=== PATIENT | male | born 1950 | race American Indian/Alaskan Native ===

== ENCOUNTER 2017-05-27 03:01 | Emergency (ER) | payer MEDICARE ==
[2017-05-27 04:31] LABS: Basophils % (Auto) 0.7 % (0.0-1.8); Eosinophils % (Auto) 10.7 % (0.0-4.3); Hematocrit 38.2 % (35.5-45.6); Hemoglobin 12.4 gm/dl (11.8-15.2); Mean Corpuscular HGB Conc 33 % (32-34); Mean Corpuscular Hemoglobin 26 pg (28-32); Mean Corpuscular Volume 82 fl (84-94); Platelet Count 234 K/mm3 (140-440); Red Blood Count 4.69 M/mm3 (3.65-5.03); Red Cell Distribution Width 18.2 % (13.2-15.2); White Blood Count 9.5 K/mm3 (4.5-11.0)
[2017-05-27 04:41] LABS: Anion Gap 17 mmol/L; BUN/Creatinine Ratio 38; Blood Urea Nitrogen 19 mg/dL (9-20); Calcium 8.9 mg/dL (8.4-10.2); Carbon Dioxide 25 mmol/L (22-30); Chloride 101.2 mmol/L (98-107); Glucose 153 mg/dL (75-100); Potassium 4.6 mmol/L (3.6-5.0); Sodium 139 mmol/L (137-145)
[2017-05-27] MEDS ORDERED: DILAUDID IM ONE (05:17)
--- NOTE | 2017-05-27 05:47 | XRay Report ---
FINAL REPORT EXAM: XR CHEST 1V AP HISTORY: chest pain TECHNIQUE: A portable semi-erect view of the chest was obtained. Comparison is made study of 06/28/2015. FINDINGS: There is atelectatic changes in the right lung base. There elevation the right hemidiaphragm unchanged from the previous study. The heart size is normal. The lungs are not congested. There EKG leads overlying the chest wall. The bones and soft tissues reveal hardware in the mid cervical spine along with multilevel disc degeneration in the thoracic spine. IMPRESSION: Mild atelectatic changes in the right lung base. No evidence of pneumonia or congestion.
--- NOTE | 2017-05-27 06:35 | Emergency Department Report ---
HPI - General Chief Complaint: Chest Pain Time Seen by Provider: 05/27/17 05:19 - HPI HPI: The patient is a 67-year-old male with a history of chronic chest pain, who presents for evaluation of chest pain. The patient reports recurrence of left- sided chest pain for the past day, 5/10 in severity currently, throbbing in quality, constant since onset. The patient denies fever, cough, trauma to the chest, hemoptysis, dyspnea, syncope, for several vomiting, unilateral leg swelling, recent cancer. ED Past Medical Hx - Past Medical History Hx Hypertension: Yes Hx CVA: Yes Hx Heart Attack/AMI: Yes Hx Congestive Heart Failure: No Hx Diabetes: Yes Hx Pulmonary Embolism: No Hx Liver Disease: No Hx Renal Disease: Yes Hx Arthritis: No Hx Headaches / Migraines: No Hx Seizures: No Hx Asthma: No Hx COPD: No Hx Tuberculosis: No Hx Dementia: No Hx HIV: No Additional medical history: Tumor on neck, Osteomyelitis, quadriplegic - Surgical History Hx Open Heart Surgery: No Hx Cholecystectomy: No Hx Appendectomy: Yes Hx Breast Surgery: No Additional Surgical History: L leg amputation - Social History Smoking Status: Never Smoker Substance Use Type: None - Medications Home Medications: Home Medications Medication Instructions Recorded Confirmed Last Taken Type Acetaminophen [Pain Reliever] 500 mg PO QDAY #30 tablet 06/10/13 04/27/17 1 Day Ago Rx Citalopram [Celexa] 20 mg PO QDAY #30 tablet 06/10/13 04/27/17 1 Day Ago Rx Ferrous Sulfate [Feosol] 325 mg PO BID #60 tablet 06/10/13 04/27/17 1 Day Ago Rx Simvastatin 20 mg PO QHS #30 tablet 06/10/13 04/27/17 1 Day Ago Rx Sucralfate [Carafate] 1 gm PO Q6HR #30 oral.liqd 11/19/13 04/27/17 1 Day Ago Rx Ascorbic Acid [Vitamin C] 500 mg PO QDAY 03/27/14 04/27/17 1 Day Ago History Lactobacillus Acidophilus 1 each PO Q8HR 03/27/14 04/27/17 1 Day Ago History [Acidophilus] Lisinopril 5 mg PO DAILY 03/27/14 04/27/17 1 Day Ago History Mirtazapine [Remeron] 7.5 mg PO QHS 02/16/15 04/27/17 1 Day Ago History Warfarin [Coumadin] 5 mg PO QHS 06/28/15 04/27/17 1 Day Ago History Docusate Sodium [Colace CAP] 100 mg PO BID PRN #20 capsule 01/07/16 04/27/17 1 Day Ago Rx Esomeprazole Magnesium [NexIUM] 40 mg PO DAILY 03/20/16 04/27/17 1 Day Ago History Insulin Aspart Prot/Aspart(Nf) 0 units SUB-Q ACHS PRN 03/20/16 04/27/17 1 Day Ago History [NovoLOG Mix 70/30 VIAL] metFORMIN [Glucophage] 500 mg PO BID 03/20/16 04/27/17 1 Day Ago History Nitrofurantoin [place]/M-Cryst 100 mg PO Q12HR #30 capsule 04/13/16 04/27/17 1 Day Ago Rx [Macrobid CAP] traMADol [Ultram 50 MG tab] 50 mg PO Q6HR PRN #15 tablet 05/27/17 Unknown Rx ED Review of Systems ROS: Stated complaint: CP Other details as noted in HPI Constitutional: denies: fever ENT: denies: throat or neck pain Respiratory: denies: cough, shortness of breath Cardiovascular: reports chest pain Endocrine: denies unexplained weight loss or gain Gastrointestinal: denies: abdominal pain, nausea Genitourinary: denies: dysuria Musculoskeletal: denies: leg swelling Skin: denies: rash Neurological: denies: headache Hematological/Lymphatic: denies: easy bleeding or easy bruising Psych: denies sadness or hopelessness Physical Exam - Physical Exam Vital Signs: Vital Signs 05/27/17 05/27/17 05/27/17 03:05 03:14 03:16 Temperature 97.6 F Pulse Rate 104 H 70 94 H Respiratory 18 21 20 Rate Blood Pressure 139/83 Blood Pressure [Left] O2 Sat by Pulse 98 97 99 Oximetry 05/27/17 05/27/17 05/27/17 03:30 03:46 04:00 Temperature 97.8 F Pulse Rate 88 91 H 85 Respiratory 22 17 31 H Rate Blood Pressure 139/83 139/83 139/83 Blood Pressure 139/83 [Left] O2 Sat by Pulse 98 100 100 Oximetry 05/27/17 05/27/17 05/27/17 04:16 04:30 04:46 Temperature Pulse Rate 96 H 86 93 H Respiratory 30 H 23 11 L Rate Blood Pressure 139/83 139/83 139/83 Blood Pressure [Left] O2 Sat by Pulse 95 99 96 Oximetry 05/27/17 05/27/17 05/27/17 05:00 05:16 05:30 Temperature Pulse Rate 91 H 85 91 H Respiratory 17 12 20 Rate Blood Pressure 139/83 190/107 190/107 Blood Pressure [Left] O2 Sat by Pulse 97 100 99 Oximetry 05/27/17 05/27/17 05/27/17 05:46 06:00 06:01 Temperature 98.1 F Pulse Rate 88 86 85 Respiratory 12 14 16 Rate Blood Pressure 190/107 190/107 Blood Pressure 107/60 [Left] O2 Sat by Pulse 100 97 99 Oximetry Physical Exam: General: well-nourished, well-developed, no acute distress Head: Normocephalic, atraumatic Eyes: normal sclera ENT: Mucous membranes are pink and moist Neck: trachea midline, neck supple, No neck stiffness, no cervical adenopathy Respiratory: Breath sounds equal bilaterally, no wheezing, rales, or rhonchi Cardio: S1 and S2 present, no murmurs, rubs, gallops, capillary refill is brisk Abdomen: Normoactive bowel sounds, soft abdomen, no rigidity, no guarding or rebound tenderness Musc: Contracture of extremities present bilaterally, left AKA present Skin: No rash Neuro: no facial drooping, normal speech Psych: Normal affect ED Course Vital Signs 05/27/17 05/27/17 05/27/17 03:05 03:14 03:16 Temperature 97.6 F Pulse Rate 104 H 70 94 H Respiratory 18 21 20 Rate Blood Pressure 139/83 Blood Pressure [Left] O2 Sat by Pulse 98 97 99 Oximetry 05/27/17 05/27/17 05/27/17 03:30 03:46 04:00 Temperature 97.8 F Pulse Rate 88 91 H 85 Respiratory 22 17 31 H Rate Blood Pressure 139/83 139/83 139/83 Blood Pressure 139/83 [Left] O2 Sat by Pulse 98 100 100 Oximetry 05/27/17 05/27/17 05/27/17 04:16 04:30 04:46 Temperature Pulse Rate 96 H 86 93 H Respiratory 30 H 23 11 L Rate Blood Pressure 139/83 139/83 139/83 Blood Pressure [Left] O2 Sat by Pulse 95 99 96 Oximetry 05/27/17 05/27/17 05/27/17 05:00 05:16 05:30 Temperature Pulse Rate 91 H 85 91 H Respiratory 17 12 20 Rate Blood Pressure 139/83 190/107 190/107 Blood Pressure [Left] O2 Sat by Pulse 97 100 99 Oximetry 05/27/17 05/27/17 05/27/17 05:46 06:00 06:01 Temperature 98.1 F Pulse Rate 88 86 85 Respiratory 12 14 16 Rate Blood Pressure 190/107 190/107 Blood Pressure 107/60 [Left] O2 Sat by Pulse 100 97 99 Oximetry ED Medical Decision Making - Lab Data Result diagrams: 05/27/17 03:57 05/27/17 03:57 - Medical Decision Making The patient was seen and examined by myself. The patient is placed on a director of cardiac cath lab and continuous pulse ox. On initial evaluation, the patient was found to be in no distress. EKG was negative for findings suggestive of acute cardiac infarct. The patient given IM dose of Dilaudid for his pain. Labs and imaging are obtained. Chest x-ray is negative for pneumothorax, focal consolidation, pulmonary vascular congestion, pleural effusion, or other obvious acute cardiopulmonary disease process. Lab results were non-concerning including levels of troponin, WBC, hemoglobin, hematocrit, electrolytes, renal function. Medical records are reviewed and revealed that the patient receive evaluation by cardiology for the past one month for same atypical chest pain symptoms. The patient was reevaluated and reported that their symptoms were markedly improved. As the patient has a VINNY risk score less than 2, and a well 's score less than 2, the patient is at low risk of ACS or pulmonary emboli etiology of their symptoms. The patient is stable for discharge with outpatient follow-up. The patient is given follow-up and return instructions. The patient expressed understanding and agreed with the plan. The patient is discharged in stable condition. Critical care attestation.: If time is entered above; I have spent that time in minutes in the direct care of this critically ill patient, excluding procedure time. ED Disposition Clinical Impression: Acute chest pain Disposition: DC-01 TO HOME OR SELFCARE Is pt being admited?: No Does the pt Need Aspirin: No Condition: Stable Instructions: Chest Pain (ED) Prescriptions: traMADol [Ultram 50 MG tab] 50 mg PO Q6HR PRN #15 tablet PRN Reason: Pain Referrals: PRIMARY CARE, [Primary Care Provider] - 3-5 Days Time of Disposition: 06:31
[2017-05-27 08:19] VITALS: BP 160/84
== END 2017-05-27 08:22 | disposition home or self-care (01) ==
LOC: ED 03:01
DX: R07.9 Chest pain, unspecified (principal); I10 Essential (primary) hypertension; I25.2 Old myocardial infarction; E11.9 Type 2 diabetes mellitus without complications
CPT/HCPCS: 36415; 71010; 80048; 84484; 85025; 93005; 93010; 96372; 99285; J1170

== ENCOUNTER 2017-08-19 23:56 | Inpatient (IN) | payer MEDICARE ==
[2017-08-20] MEDS ORDERED: NACL 0.9% 1000 ML 1,000 ML IV ONE ×2 (01:11→02:51)
[2017-08-20] MEDS ORDERED: TYLENOL PO ONE (01:25)
[2017-08-20] MEDS ORDERED: TYLENOL ONE (01:27)
[2017-08-20 02:31] LABS: Alanine Aminotransferase 15 units/L (7-56); Albumin 3.2 g/dL (3.9-5); BUN/Creatinine Ratio 44; Blood Urea Nitrogen 22 mg/dL (9-20); Calcium 7.7 mg/dL (8.4-10.2); Hemolysis Index 0
[2017-08-20 02:54] LABS: Basophils % (Auto) 0.2 % (0.0-1.8); Hematocrit 32.9 % (35.5-45.6); Hemoglobin 10.7 gm/dl (11.8-15.2); Lymphocytes # (Auto) 2.4 K/mm3 (1.2-5.4); Lymphocytes % (Auto) 19.6 % (13.4-35.0); Mean Corpuscular HGB Conc 33 % (32-34); Mean Corpuscular Hemoglobin 27 pg (28-32); Mean Corpuscular Volume 84 fl (84-94); Monocytes # (Auto) 1.3 K/mm3 (0.0-0.8); Monocytes % (Auto) 11.1 % (0.0-7.3); Platelet Count 200 K/mm3 (140-440); Red Blood Count 3.92 M/mm3 (3.65-5.03); Red Cell Distribution Width 14.6 % (13.2-15.2)
[2017-08-20] MEDS ORDERED: KCL 10MEQ/100ML 10 MEQ/100 ML BAG IV SCH (03:00)
[2017-08-20 03:03] LABS: INR 1.63 (0.87-1.13)
[2017-08-20] MEDS ORDERED: NACL ONE (03:40)
[2017-08-20 03:55] LABS: Partial Thromboplastin Time 63.4 Sec. (24.2-36.6)
--- NOTE | 2017-08-20 04:37 | XRay Report ---
FINAL REPORT EXAM: XR CHEST 1V AP HISTORY: Fever. TECHNIQUE: A single frontal portable radiograph of the chest was obtained. Comparison is made with prior study 05/27/2017. FINDINGS: The cardiac silhouette and mediastinum are within normal limits. Again demonstrated is elevation of the right hemidiaphragm. There are moderate streaky densities at the right lung base, stable in appearance, likely scarring and/or atelectasis. The remainder of the lung cervantes are clear. There is no pleural effusion or pneumothorax. Moderate spondylotic changes are seen in the spine. There is partial visualization of bilateral spinal fixation rods and pedicle screws in the lower cervical spine. IMPRESSION: Streaky densities at the right lung base, likely scarring and/or atelectasis, stable compared to 05/27/2017. No new infiltrates seen.
[2017-08-20] MEDS ORDERED: MAGNESIUM SULFATE 2GM/50ML 2 GM/50 ML BAG IV ONE ×2 (04:53→07:59)
[2017-08-20] MEDS: KCL 10 MEQ in NACL 0.9% 100 ML IV SCH ×4 (05:15→09:59)
--- NOTE | 2017-08-20 05:28 | Cat Scan Report ---
FINAL REPORT EXAM: CT ABDOMEN PELVIS W CON HISTORY: abdominal pain, abdominal distention , quadriplegic intermediate patient, reported white count is 12.2 and lactate is 1 TECHNIQUE: CT images are acquired through the Abdomen and Pelvis in arterial and delayed phases following intravenous administration of contrast. Transaxial, coronal and sagittal reformations are provided. PRIORS: 01/06/2016 FINDINGS: Partially visualized intrathoracic contents are remarkable for predominantly linear bibasilar atelectasis/scarring. A subcentimeter focus of ill-defined arterial enhancement in the right hepatic dome on axial series 5, image 23 is noted. This finding is not imaged on delayed phase imaging and may be hypoattenuating on prior noncontrast exam and is too small to fully characterize but most likely represents a hemangioma or other benign entity. The liver, gallbladder, pancreas, spleen, and adrenal glands are otherwise unremarkable. Mild cortical irregularity/scarring is greater in the left versus right kidney. Kidneys show no worrisome lesions, hydronephrosis, or calculi. Urinary bladder is decompressed with a suprapubic catheter. There is air and fluid distension of the distal sigmoid colon and rectum to a greater degree than the more proximal portions of the colon. Multiple fluid levels are present throughout the colon. No megacolon. Mild distal colorectal wall thickening is similar to prior exam. No pericolonic stranding or edema. No free air, free fluid, or lymphadenopathy identified. Aorta is normal in course and caliber. An infrarenal IVC filter is present. Large right hip joint effusion with debris, joint dislocation/disorganization and extensive intra-articular and periarticular calcification appears unchanged from prior. No acute superficial soft tissue or skeletal finding. IMPRESSION: Air and fluid distension of the distal sigmoid colon and rectum greater than more proximal portions of the colon may be infectious, inflammatory or ischemic in etiology. No pneumoperitoneum or pericolonic findings of abscess or fadi colitis. 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 Dr. Vides discussed findings with Nurse Jack Hoskins at 0410 central Time on 08/20/2017 immediately following the examination.
--- NOTE | 2017-08-20 05:56 | Emergency Department Report ---
ED Abdominal Pain HPI - General Chief Complaint: Abdominal Pain Stated Complaint: FEVER Time Seen by Provider: 08/20/17 01:38 Source: patient Mode of arrival: Ambulatory Limitations: No Limitations - History of Present Illness Initial Comments: 67-year-old male with a past medical history of diabetes, [place], hypertension, renal sufficiency, quadriplegia, left leg AKA, and previous appendectomy presents to the Hospital complains of abdominal distention from [facility]. Patient denies pain. Patient presents with fever and hypotension. He is alert and oriented to self only. Positive suprapubic catheter. Severity scale (0 -10): 0 - Related Data Home Medications Medication Instructions Recorded Confirmed Last Taken Ascorbic Acid [Vitamin C] 500 mg PO QDAY 03/27/14 04/27/17 1 Day Ago ~04/26/17 Lactobacillus Acidophilus 1 each PO Q8HR 03/27/14 04/27/17 1 Day Ago [Acidophilus] ~04/26/17 Lisinopril 5 mg PO DAILY 03/27/14 04/27/17 1 Day Ago ~04/26/17 Mirtazapine [Remeron] 7.5 mg PO QHS 02/16/15 04/27/17 1 Day Ago ~04/26/17 Warfarin [Coumadin] 5 mg PO QHS 06/28/15 04/27/17 1 Day Ago ~04/26/17 Esomeprazole Magnesium [NexIUM] 40 mg PO DAILY 03/20/16 04/27/17 1 Day Ago ~04/26/17 Insulin Aspart Prot/Aspart(Nf) 0 units SUB-Q ACHS PRN 03/20/16 04/27/17 1 Day Ago [NovoLOG Mix 70/30 VIAL] ~04/26/17 metFORMIN [Glucophage] 500 mg PO BID 03/20/16 04/27/17 1 Day Ago ~04/26/17 Previous Rx's Medication Instructions Recorded Last Taken Type Acetaminophen [Pain Reliever] 500 mg PO QDAY #30 tablet 06/10/13 1 Day Ago Rx ~04/26/17 Citalopram [Celexa] 20 mg PO QDAY #30 tablet 06/10/13 1 Day Ago Rx ~04/26/17 Ferrous Sulfate [Feosol] 325 mg PO BID #60 tablet 06/10/13 1 Day Ago Rx ~04/26/17 Simvastatin 20 mg PO QHS #30 tablet 06/10/13 1 Day Ago Rx ~04/26/17 Sucralfate [Carafate] 1 gm PO Q6HR #30 oral.liqd 11/19/13 1 Day Ago Rx ~04/26/17 Docusate Sodium [Colace CAP] 100 mg PO BID PRN #20 capsule 01/07/16 1 Day Ago Rx ~04/26/17 Nitrofurantoin [place]/M-Cryst 100 mg PO Q12HR #30 capsule 04/13/16 1 Day Ago Rx [Macrobid CAP] ~04/26/17 traMADol [Ultram 50 MG tab] 50 mg PO Q6HR PRN #15 tablet 05/27/17 Unknown Rx Allergies Allergy/AdvReac Type Severity Reaction Status Date / Time No Known Allergies Allergy Verified 05/27/17 03:08 ED Review of Systems ROS: Stated complaint: FEVER Other details as noted in HPI Comment: All other systems reviewed and negative Other: Constitutional: Fever upon arrival Respiratory: Denies cough Cardiovascular: Denies chest pain GI: Denies abdominal pain : Superpubic Musculoskeletal: Denies back pain, joint swelling Skin: Denies rash Neurologic: Denies headache ED Past Medical Hx - Past Medical History Previous Medical History?: Yes Hx Hypertension: Yes Hx CVA: Yes Hx Heart Attack/AMI: Yes Hx Congestive Heart Failure: No Hx Diabetes: Yes Hx Pulmonary Embolism: No Hx Liver Disease: No Hx Renal Disease: Yes Hx Arthritis: No Hx Headaches / Migraines: No Hx Seizures: No Hx Asthma: No Hx COPD: No Hx Tuberculosis: No Hx Dementia: No Hx HIV: No Additional medical history: Tumor on neck, Osteomyelitis, quadriplegic - Surgical History Past Surgical History?: Yes Hx Open Heart Surgery: No Hx Cholecystectomy: No Hx Appendectomy: Yes Hx Breast Surgery: No Additional Surgical History: L leg amputation - Social History Smoking Status: Never Smoker Substance Use Type: None - Medications Home Medications: Home Medications Medication Instructions Recorded Confirmed Last Taken Type Acetaminophen [Pain Reliever] 500 mg PO QDAY #30 tablet 06/10/13 04/27/17 1 Day Ago Rx ~04/26/17 Citalopram [Celexa] 20 mg PO QDAY #30 tablet 06/10/13 04/27/17 1 Day Ago Rx ~04/26/17 Ferrous Sulfate [Feosol] 325 mg PO BID #60 tablet 06/10/13 04/27/17 1 Day Ago Rx ~04/26/17 Simvastatin 20 mg PO QHS #30 tablet 06/10/13 04/27/17 1 Day Ago Rx ~04/26/17 Sucralfate [Carafate] 1 gm PO Q6HR #30 oral.liqd 11/19/13 04/27/17 1 Day Ago Rx ~04/26/17 Ascorbic Acid [Vitamin C] 500 mg PO QDAY 03/27/14 04/27/17 1 Day Ago History ~04/26/17 Lactobacillus Acidophilus 1 each PO Q8HR 03/27/14 04/27/17 1 Day Ago History [Acidophilus] ~04/26/17 Lisinopril 5 mg PO DAILY 03/27/14 04/27/17 1 Day Ago History ~04/26/17 Mirtazapine [Remeron] 7.5 mg PO QHS 02/16/15 04/27/17 1 Day Ago History ~04/26/17 Warfarin [Coumadin] 5 mg PO QHS 06/28/15 04/27/17 1 Day Ago History ~04/26/17 Docusate Sodium [Colace CAP] 100 mg PO BID PRN #20 capsule 01/07/16 04/27/17 1 Day Ago Rx ~04/26/17 Esomeprazole Magnesium [NexIUM] 40 mg PO DAILY 03/20/16 04/27/17 1 Day Ago History ~04/26/17 Insulin Aspart Prot/Aspart(Nf) 0 units SUB-Q ACHS PRN 03/20/16 04/27/17 1 Day Ago History [NovoLOG Mix 70/30 VIAL] ~04/26/17 metFORMIN [Glucophage] 500 mg PO BID 03/20/16 04/27/17 1 Day Ago History ~04/26/17 Nitrofurantoin [place]/M-Cryst 100 mg PO Q12HR #30 capsule 04/13/16 04/27/17 1 Day Ago Rx [Macrobid CAP] ~04/26/17 traMADol [Ultram 50 MG tab] 50 mg PO Q6HR PRN #15 tablet 05/27/17 Unknown Rx ED Physical Exam - General Limitations: No Limitations - Other Other exam information: General: No limitations, patient is alert in no acute distress Head exam: Atraumatic, normocephalic Eyes exam: Normal appearance ENT: Moist mucous membrane, normal oropharynx Neck exam: Normal inspection, full range of motion Respiratory exam: Clear to auscultation bilateral Cardiovascular: Regular rate and rhythm Abdomen: Soft, distended, nontender Extremity: Full range of motion normal inspection no deformity Back: Normal Inspection, full range of motion, no tenderness Neurologic: Alert, oriented x1 Psychiatric: normal affect, normal mood ED Course Vital Signs 08/20/17 08/20/17 08/20/17 00:19 00:30 00:40 Temperature 100 F H Pulse Rate 81 79 Respiratory 22 22 16 Rate Blood Pressure 88/47 88/67 O2 Sat by Pulse 94 96 Oximetry 08/20/17 08/20/17 08/20/17 01:01 01:30 02:01 Temperature Pulse Rate 81 83 89 Respiratory 22 19 16 Rate Blood Pressure 88/47 88/46 124/82 O2 Sat by Pulse 93 95 96 Oximetry 08/20/17 02:30 Temperature Pulse Rate 80 Respiratory 16 Rate Blood Pressure 112/61 O2 Sat by Pulse 96 Oximetry ED Medical Decision Making - Lab Data Result diagrams: 08/20/17 01:27 08/20/17 01:27 Lab Results 08/20/17 08/20/17 08/20/17 Range/Units 01:27 01:27 01:33 WBC 12.2 H (4.5-11.0) K/mm3 RBC 3.92 (3.65-5.03) M/mm3 Hgb 10.7 L (11.8-15.2) gm/dl Hct 32.9 L (35.5-45.6) % MCV 84 (84-94) fl MCH 27 L (28-32) pg MCHC 33 (32-34) % RDW 14.6 (13.2-15.2) % Plt Count 200 (140-440) K/mm3 Lymph % (Auto) 19.6 (13.4-35.0) % [place] % (Auto) 11.1 H (0.0-7.3) % Eos % (Auto) 0.0 (0.0-4.3) % Baso % (Auto) 0.2 (0.0-1.8) % Lymph # 2.4 (1.2-5.4) K/mm3 [place] # 1.3 H (0.0-0.8) K/mm3 Eos # 0.0 (0.0-0.4) K/mm3 Baso # 0.0 (0.0-0.1) K/mm3 Seg Neutrophils % 69.1 (40.0-70.0) % Seg Neutrophils # 8.4 H (1.8-7.7) K/mm3 PT (12.2-14.9) Sec. INR (0.87-1.13) APTT (24.2-36.6) Sec. VBG pH (7.320-7.420) Sodium 138 (137-145) mmol/L Potassium 2.7 L* (3.6-5.0) mmol/L Chloride 96.5 L (98-107) mmol/L Carbon Dioxide 27 (22-30) mmol/L Anion Gap 17 mmol/L BUN 22 H (9-20) mg/dL Creatinine 0.5 L (0.8-1.5) mg/dL Estimated GFR > 60 ml/min BUN/Creatinine Ratio 44 % Glucose 104 H (75-100) mg/dL Lactic Acid (0.7-2.0) mmol/L Calcium 7.7 L (8.4-10.2) mg/dL Magnesium (1.7-2.3) mg/dL Total Bilirubin 0.40 (0.1-1.2) mg/dL AST 15 (5-40) units/L ALT 15 (7-56) units/L Alkaline Phosphatase 90 (35-129) units/L Total Protein 5.7 L (6.3-8.2) g/dL Albumin 3.2 L (3.9-5) g/dL Albumin/Globulin Ratio 1.3 % Lipase 13 (13-60) units/L Blood Type Antibody Screen 08/20/17 08/20/17 08/20/17 Range/Units 01:33 01:33 01:45 WBC (4.5-11.0) K/mm3 RBC (3.65-5.03) M/mm3 Hgb (11.8-15.2) gm/dl Hct (35.5-45.6) % MCV (84-94) fl MCH (28-32) pg MCHC (32-34) % RDW (13.2-15.2) % Plt Count (140-440) K/mm3 Lymph % (Auto) (13.4-35.0) % [place] % (Auto) (0.0-7.3) % Eos % (Auto) (0.0-4.3) % Baso % (Auto) (0.0-1.8) % Lymph # (1.2-5.4) K/mm3 [place] # (0.0-0.8) K/mm3 Eos # (0.0-0.4) K/mm3 Baso # (0.0-0.1) K/mm3 Seg Neutrophils % (40.0-70.0) % Seg Neutrophils # (1.8-7.7) K/mm3 PT 20.3 H (12.2-14.9) Sec. INR 1.63 H (0.87-1.13) APTT 63.4 H* (24.2-36.6) Sec. VBG pH (7.320-7.420) Sodium (137-145) mmol/L Potassium (3.6-5.0) mmol/L Chloride (98-107) mmol/L Carbon Dioxide (22-30) mmol/L Anion Gap mmol/L BUN (9-20) mg/dL Creatinine (0.8-1.5) mg/dL Estimated GFR ml/min BUN/Creatinine Ratio % Glucose (75-100) mg/dL Lactic Acid 1.00 (0.7-2.0) mmol/L Calcium (8.4-10.2) mg/dL Magnesium (1.7-2.3) mg/dL Total Bilirubin (0.1-1.2) mg/dL AST (5-40) units/L ALT (7-56) units/L Alkaline Phosphatase (35-129) units/L Total Protein (6.3-8.2) g/dL Albumin (3.9-5) g/dL Albumin/Globulin Ratio % Lipase (13-60) units/L Blood Type O POSITIVE Antibody Screen Negative 08/20/17 08/20/17 Range/Units 02:30 02:54 WBC (4.5-11.0) K/mm3 RBC (3.65-5.03) M/mm3 Hgb (11.8-15.2) gm/dl Hct (35.5-45.6) % MCV (84-94) fl MCH (28-32) pg MCHC (32-34) % RDW (13.2-15.2) % Plt Count (140-440) K/mm3 Lymph % (Auto) (13.4-35.0) % [place] % (Auto) (0.0-7.3) % Eos % (Auto) (0.0-4.3) % Baso % (Auto) (0.0-1.8) % Lymph # (1.2-5.4) K/mm3 [place] # (0.0-0.8) K/mm3 Eos # (0.0-0.4) K/mm3 Baso # (0.0-0.1) K/mm3 Seg Neutrophils % (40.0-70.0) % Seg Neutrophils # (1.8-7.7) K/mm3 PT (12.2-14.9) Sec. INR (0.87-1.13) APTT (24.2-36.6) Sec. VBG pH 7.421 H (7.320-7.420) Sodium (137-145) mmol/L Potassium (3.6-5.0) mmol/L Chloride (98-107) mmol/L Carbon Dioxide (22-30) mmol/L Anion Gap mmol/L BUN (9-20) mg/dL Creatinine (0.8-1.5) mg/dL Estimated GFR ml/min BUN/Creatinine Ratio % Glucose (75-100) mg/dL Lactic Acid (0.7-2.0) mmol/L Calcium (8.4-10.2) mg/dL Magnesium 1.60 L (1.7-2.3) mg/dL Total Bilirubin (0.1-1.2) mg/dL AST (5-40) units/L ALT (7-56) units/L Alkaline Phosphatase (35-129) units/L Total Protein (6.3-8.2) g/dL Albumin (3.9-5) g/dL Albumin/Globulin Ratio % Lipase (13-60) units/L Blood Type Antibody Screen - Radiology Data Radiology results: report reviewed CT abdomen and pelvis IV contrast: Air and fluid distention of the distal sigmoid colon and rectum greater then more proximal portions of the colon may be infectious, inflammatory or ischemic etiology. See report for other incidental finding - Medical Decision Making Abdominal distention. CT results discussed with surgery. They will consult. Patient currently Zosyn. Hypotension improved with normal saline. IV potassium and IV magnesium ordered for supplementation of electrolytes. UA collection still pending at disposition. Hospitalist informed - Differential Diagnosis obstruction, fecal impaction, perforation, UTI, sepsis Critical Care Time: No Critical care attestation.: If time is entered above; I have spent that time in minutes in the direct care of this critically ill patient, excluding procedure time. ED Disposition Clinical Impression: Abdominal distension, Colon distention, Diabetes mellitus, type 2, Hypomagnesemia, Hypokalemia, Quadriparesis, Fever Disposition: -09 OP ADMIT IP TO THIS HOSP Is pt being admited?: Yes Condition: Stable Time of Disposition: 06:02 (Dr Tate/hosp)
[2017-08-20] MEDS ORDERED: ZOSYN/NS 4.5GM/100ML 4.5 GM/100 ML VIAL IV ONE (06:00)
[2017-08-20 07:12] LABS: Bacteria,Urine 2+ /HPF (Negative); Bilirubin,Urine NEG (Negative); Blood,Urine MOD (Negative); Color,Urine Yellow (Yellow); Mucus,Urine FEW /HPF; Nitrite,Urine POS (Negative); Urobilinogen,Urine < 2.0 mg/dL (<2.0)
--- NOTE | 2017-08-20 08:34 | Consultation ---
History of Present Illness Consult date: 08/20/17 Reason for consult: other (abdominal distention) Requesting physician: CLEMENCIA CORTÉS Chief complaint: abdominal distention - History of present illness History of present illness: 67yo M with multiple medical problems including quadriplegia presents with acute onset of abdominal distention. Denies pain. Denies this as a chronic problem. No N/V. Does not require assistance to have BM. No meds are normally used to cause BM. Only reports feeling of urinary frequency and lump in throat. No cough/cold sx's. No chest pain. Past History Past Medical History: acute NV, diabetes, DVT, other (renal insufficiency, history of DVT, quadriplegia, ) Past Surgical History: appendectomy, Other (leg amputation, suprapubic catheter placement) Social history: other (lives in long term). denies: smoking, alcohol abuse, IV drug use Family history: no significant family history Medications and Allergies Allergies Allergy/AdvReac Type Severity Reaction Status Date / Time No Known Allergies Allergy Verified 05/27/17 03:08 Home Medications Medication Instructions Recorded Confirmed Last Taken Type Acetaminophen [Pain Reliever] 500 mg PO QDAY #30 tablet 06/10/13 08/20/17 1 Day Ago Rx ~04/26/17 Citalopram [Celexa] 20 mg PO QDAY #30 tablet 06/10/13 08/20/17 1 Day Ago Rx ~04/26/17 Ferrous Sulfate [Feosol] 325 mg PO BID #60 tablet 06/10/13 08/20/17 1 Day Ago Rx ~04/26/17 Simvastatin 20 mg PO QHS #30 tablet 06/10/13 08/20/17 1 Day Ago Rx ~04/26/17 Sucralfate [Carafate] 1 gm PO Q6HR #30 oral.liqd 11/19/13 08/20/17 1 Day Ago Rx ~04/26/17 Ascorbic Acid [Vitamin C] 500 mg PO QDAY 03/27/14 08/20/17 1 Day Ago History ~04/26/17 Lactobacillus Acidophilus 1 each PO Q8HR 03/27/14 08/20/17 1 Day Ago History [Acidophilus] ~04/26/17 Lisinopril 5 mg PO DAILY 09/15/14 02/08/18 1 Day Ago History ~04/26/17 Mirtazapine [Remeron] 7.5 mg PO QHS 02/16/15 08/20/17 1 Day Ago History ~04/26/17 Warfarin [Coumadin] 5 mg PO QHS 06/28/15 08/20/17 1 Day Ago History ~04/26/17 Docusate Sodium [Colace CAP] 100 mg PO BID PRN #20 capsule 01/07/16 08/20/17 1 Day Ago Rx ~04/26/17 Esomeprazole Magnesium [NexIUM] 40 mg PO DAILY 03/20/16 08/20/17 1 Day Ago History ~04/26/17 Insulin Aspart Prot/Aspart(Nf) 0 units SUB-Q ACHS PRN 03/20/16 08/20/17 1 Day Ago History [NovoLOG Mix 70/30 VIAL] ~04/26/17 metFORMIN [Glucophage] 500 mg PO BID 03/20/16 08/20/17 1 Day Ago History ~04/26/17 Nitrofurantoin [place]/M-Cryst 100 mg PO Q12HR #30 capsule 04/13/16 08/20/17 1 Day Ago Rx [Macrobid CAP] ~04/26/17 traMADol [Ultram 50 MG tab] 50 mg PO Q6HR PRN #15 tablet 05/27/17 08/20/17 Unknown Rx Review of Systems - Constitutional no fever, no chills, no sweats, no night sweats - EENT Ears, nose, mouth and throat: swelling in throat - Cardiovascular no chest pain - Respiratory no cough, no cough with sputum, no shortness of breath - Gastrointestinal dyspepsia/bloating, no abdominal pain, no nausea, no vomiting, no hematemesis, no BRBPR, no melena, no hematochezia, no heartburn, no indigestion - Genitourinary urinary frequency Exam Vital Signs Resp 08/20/17 00:19 - General physical appearance Positive: no distress, no pain, other (awake and alert. Seemed to answer questions appropriately.) - Eyes Positive: normal occular movement. Negative: icteric - ENT Positive: other (very dry oral mucosa) - Respiratory Positive: normal expansion, normal respiratory effort, clear to auscultation - Cardiovascular Rhythm: regular - Abdomen Abdomen: Present: soft, bowel sounds hypoactive (with fluid filled sounds.), distended. Absent: tender, rebound, guarding, rigid - Integumentary no rash - Psychiatric Psychiatric: appropriate mood/affect, cooperative Results - Labs 08/20/17 01:27 08/20/17 01:27 Abnormal lab results 08/20/17 08/20/17 08/20/17 Range/Units 01:27 01:27 01:33 WBC 12.2 H (4.5-11.0) K/mm3 Hgb 10.7 L (11.8-15.2) gm/dl Hct 32.9 L (35.5-45.6) % MCH 27 L (28-32) pg [place] % (Auto) 11.1 H (0.0-7.3) % [place] # 1.3 H (0.0-0.8) K/mm3 Seg Neutrophils # 8.4 H (1.8-7.7) K/mm3 PT 20.3 H (12.2-14.9) Sec. INR 1.63 H (0.87-1.13) APTT 63.4 H* (24.2-36.6) Sec. VBG pH (7.320-7.420) Potassium 2.7 L* (3.6-5.0) mmol/L Chloride 96.5 L (98-107) mmol/L BUN 22 H (9-20) mg/dL Creatinine 0.5 L (0.8-1.5) mg/dL Glucose 104 H (75-100) mg/dL Calcium 7.7 L (8.4-10.2) mg/dL Magnesium (1.7-2.3) mg/dL Total Protein 5.7 L (6.3-8.2) g/dL Albumin 3.2 L (3.9-5) g/dL Ur Specific [place] (1.003-1.030) Urine WBC (Auto) (0.0-6.0) /HPF 08/20/17 08/20/17 08/20/17 Range/Units 02:30 02:54 05:10 WBC (4.5-11.0) K/mm3 Hgb (11.8-15.2) gm/dl Hct (35.5-45.6) % MCH (28-32) pg [place] % (Auto) (0.0-7.3) % [place] # (0.0-0.8) K/mm3 Seg Neutrophils # (1.8-7.7) K/mm3 PT (12.2-14.9) Sec. INR (0.87-1.13) APTT (24.2-36.6) Sec. VBG pH 7.421 H (7.320-7.420) Potassium (3.6-5.0) mmol/L Chloride (98-107) mmol/L BUN (9-20) mg/dL Creatinine (0.8-1.5) mg/dL Glucose (75-100) mg/dL Calcium (8.4-10.2) mg/dL Magnesium 1.60 L (1.7-2.3) mg/dL Total Protein (6.3-8.2) g/dL Albumin (3.9-5) g/dL Ur Specific [place] 1.058 H (1.003-1.030) Urine WBC (Auto) 164.0 H (0.0-6.0) /HPF Diabetes panel 08/20/17 Range/Units 01:27 Sodium 138 (137-145) mmol/L Potassium 2.7 L* (3.6-5.0) mmol/L Chloride 96.5 L (98-107) mmol/L Carbon Dioxide 27 (22-30) mmol/L BUN 22 H (9-20) mg/dL Creatinine 0.5 L (0.8-1.5) mg/dL Glucose 104 H (75-100) mg/dL Calcium 7.7 L (8.4-10.2) mg/dL AST 15 (5-40) units/L ALT 15 (7-56) units/L Alkaline Phosphatase 90 (35-129) units/L Total Protein 5.7 L (6.3-8.2) g/dL Albumin 3.2 L (3.9-5) g/dL Calcium panel 08/20/17 Range/Units 01:27 Calcium 7.7 L (8.4-10.2) mg/dL Albumin 3.2 L (3.9-5) g/dL Pituitary panel 08/20/17 Range/Units 01:27 Sodium 138 (137-145) mmol/L Potassium 2.7 L* (3.6-5.0) mmol/L Chloride 96.5 L (98-107) mmol/L Carbon Dioxide 27 (22-30) mmol/L BUN 22 H (9-20) mg/dL Creatinine 0.5 L (0.8-1.5) mg/dL Glucose 104 H (75-100) mg/dL Calcium 7.7 L (8.4-10.2) mg/dL Adrenal panel 08/20/17 Range/Units 01:27 Sodium 138 (137-145) mmol/L Potassium 2.7 L* (3.6-5.0) mmol/L Chloride 96.5 L (98-107) mmol/L Carbon Dioxide 27 (22-30) mmol/L BUN 22 H (9-20) mg/dL Creatinine 0.5 L (0.8-1.5) mg/dL Glucose 104 H (75-100) mg/dL Calcium 7.7 L (8.4-10.2) mg/dL Total Bilirubin 0.40 (0.1-1.2) mg/dL AST 15 (5-40) units/L ALT 15 (7-56) units/L Alkaline Phosphatase 90 (35-129) units/L Total Protein 5.7 L (6.3-8.2) g/dL Albumin 3.2 L (3.9-5) g/dL - Imaging Chest x-ray: report reviewed CT scan - abdomen: report reviewed, image reviewed Assessment and Plan - Patient Problems (1) Abdominal distension Current Visit: Yes Status: Acute Plan to address problem: Pt does not have an acute abdomen. Doubt there is an infection involving intestines. Don't see clear evidence of obstruction either clinically or on radiographic studies. I think the distention is probably multifactorial - bowel dysfunction due to spinal cord issue, dehydration, UTI, medications (iron), etc. No need for surgery at this time. Rec: 1) rehydration 2) suppository (may require digital rectal stimulation based on degree of spinal cord degeneration). If not helpful, would try gastrograffin enema. If still not helpful, can try neostigmine. 3) Ok to give clear liquid diet 4) Correct lyte abnormalities. 5) treat UTI and change out suprapubic catheter Will follow with you. thank you for the consult. Please call with any questions. time=60min
[2017-08-20] MEDS ORDERED: DULCOLAX PR PRN (10:09)
[2017-08-20] MEDS ORDERED: D50W (25GM) Syringe IV PRN (10:09)
[2017-08-20] MEDS ORDERED: MILK OF MAGNESIA PO PRN (10:09)
[2017-08-20] MEDS ORDERED: ZOFRAN IV PRN (10:09)
--- NOTE | 2017-08-20 10:09 | History and Physical Report ---
History of Present Illness Date of examination: 08/20/17 Date of admission: 08/20/17 06:06 Chief complaint: abd distention History of present illness: 67-year-old male with a past medical history of diabetes, SD, hypertension, renal sufficiency, quadriplegia, left leg AKA, and previous appendectomy presents to the Hospital complains of abdominal distention from [facility]. Patient denies pain. Patient presents with fever and hypotension. He is alert and oriented to self only. Positive suprapubic catheter. No cough/cold sx's. No chest pain. Past History Past Medical History: acute SD, diabetes, DVT, other (renal insufficiency, history of DVT, quadriplegia, ) Past Surgical History: appendectomy, Other (leg amputation, suprapubic catheter placement) Social history: other (lives in half-way). denies: smoking, alcohol abuse, IV drug use Family history: no significant family history Medications and Allergies Allergies Allergy/AdvReac Type Severity Reaction Status Date / Time No Known Allergies Allergy Verified 05/27/17 03:08 Home Medications Medication Instructions Recorded Confirmed Last Taken Type Acetaminophen [Pain Reliever] 500 mg PO QDAY #30 tablet 06/10/13 08/20/17 1 Day Ago Rx ~04/26/17 Citalopram [Celexa] 20 mg PO QDAY #30 tablet 06/10/13 08/20/17 1 Day Ago Rx ~04/26/17 Ferrous Sulfate [Feosol] 325 mg PO BID #60 tablet 06/10/13 08/20/17 1 Day Ago Rx ~04/26/17 Simvastatin 20 mg PO QHS #30 tablet 06/10/13 08/20/17 1 Day Ago Rx ~04/26/17 Sucralfate [Carafate] 1 gm PO Q6HR #30 oral.liqd 11/19/13 08/20/17 1 Day Ago Rx ~04/26/17 Ascorbic Acid [Vitamin C] 500 mg PO QDAY 03/27/14 08/20/17 1 Day Ago History ~04/26/17 Lactobacillus Acidophilus 1 each PO Q8HR 03/27/14 08/20/17 1 Day Ago History [Acidophilus] ~04/26/17 Lisinopril 5 mg PO DAILY 03/27/14 08/20/17 1 Day Ago History ~04/26/17 Mirtazapine [Remeron] 7.5 mg PO QHS 02/16/15 08/20/17 1 Day Ago History ~04/26/17 Warfarin [Coumadin] 5 mg PO QHS 06/28/15 08/20/17 1 Day Ago History ~04/26/17 Docusate Sodium [Colace CAP] 100 mg PO BID PRN #20 capsule 01/07/16 08/20/17 1 Day Ago Rx ~04/26/17 Esomeprazole Magnesium [NexIUM] 40 mg PO DAILY 03/20/16 08/20/17 1 Day Ago History ~04/26/17 Insulin Aspart Prot/Aspart(Nf) 0 units SUB-Q ACHS PRN 03/20/16 08/20/17 1 Day Ago History [NovoLOG Mix 70/30 VIAL] ~04/26/17 metFORMIN [Glucophage] 500 mg PO BID 03/20/16 08/20/17 1 Day Ago History ~04/26/17 Nitrofurantoin [place]/M-Cryst 100 mg PO Q12HR #30 capsule 04/13/16 08/20/17 1 Day Ago Rx [Macrobid CAP] ~04/26/17 traMADol [Ultram 50 MG tab] 50 mg PO Q6HR PRN #15 tablet 05/27/17 08/20/17 Unknown Rx Review of Systems All systems: negative Exam - Constitutional Vitals: Temp Pulse Resp BP Pulse Ox 98.9 F 98 H 20 138/63 95 08/20/17 02:30 08/20/17 09:30 08/20/17 09:30 08/20/17 09:30 08/20/17 09:30 General appearance: Present: no acute distress, well-nourished - EENT Eyes: Present: PERRL ENT: hearing intact, clear oral mucosa - Neck Neck: Present: supple, normal ROM - Respiratory Respiratory effort: normal Respiratory: bilateral: CTA - Cardiovascular Heart Sounds: Present: S1 & S2. Absent: rub, click - Extremities Extremities: pulses symmetrical, No edema Peripheral Pulses: within normal limits - Abdominal General gastrointestinal: Present: soft, non-tender, distended, normal bowel sounds Male genitourinary: Present: normal - Integumentary Integumentary: Present: clear, warm, dry - Musculoskeletal Musculoskeletal: gait normal, strength equal bilaterally - Psychiatric Psychiatric: appropriate mood/affect, intact judgment & insight - Neurologic Neurologic: CNII-XII intact, moves all extremities Results - Labs CBC & Chem 7: 08/20/17 01:27 08/20/17 01:27 Labs: Laboratory Last Values WBC 12.2 K/mm3 (4.5-11.0) H 08/20/17 01:27 RBC 3.92 M/mm3 (3.65-5.03) 08/20/17 01:27 Hgb 10.7 gm/dl (11.8-15.2) L 08/20/17 01:27 Hct 32.9 % (35.5-45.6) L 08/20/17 01: MCV 84 fl (84-94) 08/20/17 01: MCH 27 pg (28-32) L 08/20/17 01: MCHC 33 % (32-34) 08/20/17 01: RDW 14.6 % (13.2-15.2) 08/20/17 01:27 Plt Count 200 K/mm3 (140-440) 08/20/17 01:27 Lymph % (Auto) 19.6 % (13.4-35.0) 08/20/17 01:27 [place] % (Auto) 11.1 % (0.0-7.3) H 08/20/17 01:27 Eos % (Auto) 0.0 % (0.0-4.3) 08/20/17 01: Baso % (Auto) 0.2 % (0.0-1.8) 08/20/17 01:27 Lymph # 2.4 K/mm3 (1.2-5.4) 08/20/17 01:27 [place] # 1.3 K/mm3 (0.0-0.8) H 08/20/17 01:27 Eos # 0.0 K/mm3 (0.0-0.4) 08/20/17 01:27 Baso # 0.0 K/mm3 (0.0-0.1) 08/20/17 01:27 Seg Neutrophils % 69.1 % (40.0-70.0) 08/20/17 01:27 Seg Neutrophils # 8.4 K/mm3 (1.8-7.7) H 08/20/17 01:27 PT 20.3 Sec. (12.2-14.9) H 08/20/17 01:33 INR 1.63 (0.87-1.13) H 08/20/17 01:33 APTT 63.4 Sec. (24.2-36.6) H* 08/20/17 01:33 VBG pH 7.421 (7.320-7.420) H 08/20/17 02:54 Sodium 138 mmol/L (137-145) 08/20/17 01:27 Potassium 2.7 mmol/L (3.6-5.0) L* 08/20/17 01:27 Chloride 96.5 mmol/L (98-107) L 08/20/17 01:27 Carbon Dioxide 27 mmol/L (22-30) 08/20/17 01:27 Anion Gap 17 mmol/L 08/20/17 01:27 BUN 22 mg/dL (9-20) H 08/20/17 01:27 Creatinine 0.5 mg/dL (0.8-1.5) L 08/20/17 01:27 Estimated GFR > 60 ml/min 08/20/17 01:27 BUN/Creatinine Ratio 44 % 08/20/17 01:27 Glucose 104 mg/dL (75-100) H 08/20/17 01:27 Lactic Acid 1.00 mmol/L (0.7-2.0) 08/20/17 01:45 Calcium 7.7 mg/dL (8.4-10.2) L 08/20/17 01:27 Magnesium 1.60 mg/dL (1.7-2.3) L 08/20/17 02:30 Total Bilirubin 0.40 mg/dL (0.1-1.2) 08/20/17 01:27 AST 15 units/L (5-40) 08/20/17 01:27 ALT 15 units/L (7-56) 08/20/17 01:27 Alkaline Phosphatase 90 units/L (35-129) 08/20/17 01:27 Total Protein 5.7 g/dL (6.3-8.2) L 08/20/17 01:27 Albumin 3.2 g/dL (3.9-5) L 08/20/17 01:27 Albumin/Globulin Ratio 1.3 % 08/20/17 01:27 Lipase 13 units/L (13-60) 08/20/17 01:33 Urine Color Yellow (Yellow) 08/20/17 05:10 Urine Turbidity Clear (Clear) 08/20/17 05:10 Urine pH 6.0 (5.0-7.0) 08/20/17 05:10 Ur Specific [place] 1.058 (1.003-1.030) H 08/20/17 05:10 Urine Protein 30 mg/dl mg/dL (Negative) 08/20/17 05:10 Urine Glucose (UA) Neg mg/dL (Negative) 08/20/17 05:10 Urine Ketones Tr mg/dL (Negative) 08/20/17 05:10 Urine Blood Mod (Negative) 08/20/17 05:10 Urine Nitrite Pos (Negative) 08/20/17 05:10 Urine Bilirubin Neg (Negative) 08/20/17 05:10 Urine Urobilinogen < 2.0 mg/dL (<2.0) 08/20/17 05:10 Ur Leukocyte Esterase Lg (Negative) 08/20/17 05:10 Urine WBC (Auto) 164.0 /HPF (0.0-6.0) H 08/20/17 05:10 Urine RBC (Auto) 29.0 /HPF (0.0-6.0) 08/20/17 05:10 Urine Bacteria (Auto) 2+ /HPF (Negative) 08/20/17 05:10 Urine WBC Clumps 2+ /HPF 08/20/17 05:10 Urine Mucus Few /HPF 08/20/17 05:10 Urine Yeast (Bud[place]) 2+ /HPF 08/20/17 05:10 Blood Type O POSITIVE 08/20/17 01:33 Antibody Screen Negative 08/20/17 01:33 Assessment and Plan Assessment and plan: Sepsis. POA. Pt. meets criteria with tachycardia, hypotension, leukocytosis and UTI +/- infectious enteritis. Sepsis pathway, IV abx, trend lactic acid levels, f/u Cx. Stool studies. UTI. As above. F/U Urine cx Abd distention. Surgery following. Gi consultation. Dm II. Acuchecks and SSRI HTN. Resume antihypertensive meds Left LE AKA hyopkalemia. Replete potassium
[2017-08-20] MEDS: NOVOLOG SUB-Q SCH ×2 (12:49→18:38)
[2017-08-20] MEDS: FLAGYL 500 MG/100 ML 500 MG/100 ML BAG IV SCH ×2 (13:45→22:34)
[2017-08-20] MEDS: ZOSYN/NS 4.5GM/100ML 4.5 GM/100 ML VIAL IV SCH ×2 (14:50→21:04)
--- NOTE | 2017-08-20 14:53 | Consultation ---
History of Present Illness - Reason for Consult Consult date: 08/20/17 abd distention - History of Present Illness Pt is s/p CVA 7 years ago. He is quadriplegic and lives in a fpc. He was admitted for abdominal distention. Patient has dementia but is able to give some history which seems appropriate. Remainder of history was obtained from chart. He denies abdominal pain nausea or vomiting. He is status post left AKA, and has a suprapubic catheter in place. He denies problems with his bowel habits and states he has a bowel movement every 1-2 days. He denies GI bleeding. He states he feels better today than on admission. The nurse states that he had a small normal bowel movement today. Past History Past Medical History: acute AL, diabetes, DVT, other (renal insufficiency, history of DVT, quadriplegia, ) Past Surgical History: appendectomy, Other (Left AKA amputation, suprapubic catheter placement) Social history: other (lives in fpc). denies: smoking, alcohol abuse, IV drug use Family history: no significant family history Medications and Allergies Allergies Allergy/AdvReac Type Severity Reaction Status Date / Time No Known Allergies Allergy Verified 05/27/17 03:08 Home Medications Medication Instructions Recorded Confirmed Last Taken Type Acetaminophen [Pain Reliever] 500 mg PO QDAY #30 tablet 06/10/13 08/20/17 1 Day Ago Rx ~04/26/17 Citalopram [Celexa] 20 mg PO QDAY #30 tablet 06/10/13 08/20/17 1 Day Ago Rx ~04/26/17 Ferrous Sulfate [Feosol] 325 mg PO BID #60 tablet 06/10/13 08/20/17 1 Day Ago Rx ~04/26/17 Simvastatin 20 mg PO QHS #30 tablet 06/10/13 08/20/17 1 Day Ago Rx ~04/26/17 Sucralfate [Carafate] 1 gm PO Q6HR #30 oral.liqd 11/19/13 08/20/17 1 Day Ago Rx ~04/26/17 Ascorbic Acid [Vitamin C] 500 mg PO QDAY 03/27/14 08/20/17 1 Day Ago History ~04/26/17 Lactobacillus Acidophilus 1 each PO Q8HR 03/27/14 08/20/17 1 Day Ago History [Acidophilus] ~04/26/17 Lisinopril 5 mg PO DAILY 03/27/14 08/20/17 1 Day Ago History ~04/26/17 Mirtazapine [Remeron] 7.5 mg PO QHS 02/16/15 08/20/17 1 Day Ago History ~04/26/17 Warfarin [Coumadin] 5 mg PO QHS 06/28/15 08/20/17 1 Day Ago History ~04/26/17 Docusate Sodium [Colace CAP] 100 mg PO BID PRN #20 capsule 01/07/16 08/20/17 1 Day Ago Rx ~04/26/17 Esomeprazole Magnesium [NexIUM] 40 mg PO DAILY 03/20/16 08/20/17 1 Day Ago History ~04/26/17 Insulin Aspart Prot/Aspart(Nf) 0 units SUB-Q ACHS PRN 03/20/16 08/20/17 1 Day Ago History [NovoLOG Mix 70/30 VIAL] ~04/26/17 metFORMIN [Glucophage] 500 mg PO BID 03/20/16 08/20/17 1 Day Ago History ~04/26/17 Nitrofurantoin [place]/M-Cryst 100 mg PO Q12HR #30 capsule 04/13/16 08/20/17 1 Day Ago Rx [Macrobid CAP] ~04/26/17 traMADol [Ultram 50 MG tab] 50 mg PO Q6HR PRN #15 tablet 05/27/17 08/20/17 Unknown Rx Active Meds: Active Medications Acetaminophen (Tylenol) 650 mg PO Q4H PRN PRN Reason: Pain MILD(1-3)/Fever >100.5/CROFT Bisacodyl (Dulcolax) 10 mg DC QDAY PRN PRN Reason: Constipation unrelieved by MOM Dextrose (D50w (25gm) Syringe) 50 ml IV PRN PRN PRN Reason: Hypoglycemia Potassium Chloride/Dextrose/Sod Cl (D5w/0.45% Nacl/Kcl 20 Meq) 20 meq in 1,000 mls @ 75 mls/hr IV DIRECT SAUD Metronidazole (Flagyl 500 Mg/100 Ml) 500 mg in 100 mls @ 100 mls/hr IV Q8HR SAUD Last Admin: 08/20/17 13:45 Dose: 100 mls/hr Piperacillin Sod/Tazobactam Sod (Zosyn/Ns 4.5gm/100ml) 4.5 gm in 100 mls @ 200 mls/hr IV Q8HR SAUD PRN Reason: Protocol Insulin Aspart (Novolog) 0 units SUB-Q Q6HR SAUD PRN Reason: Protocol Last Admin: 08/20/17 12:49 Dose: Not Given Magnesium Hydroxide (Milk Of Magnesia) 30 ml PO Q4H PRN PRN Reason: Constipation Ondansetron HCl (Zofran) 4 mg IV Q8H PRN PRN Reason: N/V unrelieved by Reglan Review of Systems ROS unobtainable: due to mental status (Pt reportedly has dementia. However, he answers clearly, and denies complaints. ) Exam - Constitutional Vitals: Temp Pulse Resp BP Pulse Ox 98.9 F 102 H 21 132/59 94 08/20/17 02:30 08/20/17 12:30 08/20/17 12:30 08/20/17 12:30 08/20/17 12:30 General appearance: Present: no acute distress - EENT Eyes: Present: PERRL, EOM intact ENT: hearing intact - Respiratory Respiratory effort: normal - Cardiovascular Rhythm: regular Heart Sounds: Present: S1 & S2 - Abdominal General gastrointestinal: Present: soft, non-tender, distended (Mildly distended ), other (suprapubic catheter, with clear stoma and no discharge) - Neurologic Neurologic: other (AO to self) Results - Labs CBC & Chem 7: 08/20/17 01:27 08/20/17 01:27 Labs: Abnormal lab results 08/20/17 08/20/17 08/20/17 Range/Units 01:27 01:27 01:33 WBC 12.2 H (4.5-11.0) K/mm3 Hgb 10.7 L (11.8-15.2) gm/dl Hct 32.9 L (35.5-45.6) % MCH 27 L (28-32) pg [place] % (Auto) 11.1 H (0.0-7.3) % [place] # 1.3 H (0.0-0.8) K/mm3 Seg Neutrophils # 8.4 H (1.8-7.7) K/mm3 PT 20.3 H (12.2-14.9) Sec. INR 1.63 H (0.87-1.13) APTT 63.4 H* (24.2-36.6) Sec. VBG pH (7.320-7.420) Potassium 2.7 L* (3.6-5.0) mmol/L Chloride 96.5 L (98-107) mmol/L BUN 22 H (9-20) mg/dL Creatinine 0.5 L (0.8-1.5) mg/dL Glucose 104 H (75-100) mg/dL POC Glucose (70-105) Calcium 7.7 L (8.4-10.2) mg/dL Magnesium (1.7-2.3) mg/dL Total Protein 5.7 L (6.3-8.2) g/dL Albumin 3.2 L (3.9-5) g/dL Ur Specific [place] (1.003-1.030) Urine WBC (Auto) (0.0-6.0) /HPF 08/20/17 08/20/17 08/20/17 Range/Units 02:30 02:54 05:10 WBC (4.5-11.0) K/mm3 Hgb (11.8-15.2) gm/dl Hct (35.5-45.6) % MCH (28-32) pg [place] % (Auto) (0.0-7.3) % [place] # (0.0-0.8) K/mm3 Seg Neutrophils # (1.8-7.7) K/mm3 PT (12.2-14.9) Sec. INR (0.87-1.13) APTT (24.2-36.6) Sec. VBG pH 7.421 H (7.320-7.420) Potassium (3.6-5.0) mmol/L Chloride (98-107) mmol/L BUN (9-20) mg/dL Creatinine (0.8-1.5) mg/dL Glucose (75-100) mg/dL POC Glucose (70-105) Calcium (8.4-10.2) mg/dL Magnesium 1.60 L (1.7-2.3) mg/dL Total Protein (6.3-8.2) g/dL Albumin (3.9-5) g/dL Ur Specific [place] 1.058 H (1.003-1.030) Urine WBC (Auto) 164.0 H (0.0-6.0) /HPF 08/20/17 Range/Units 11:25 WBC (4.5-11.0) K/mm3 Hgb (11.8-15.2) gm/dl Hct (35.5-45.6) % MCH (28-32) pg [place] % (Auto) (0.0-7.3) % [place] # (0.0-0.8) K/mm3 Seg Neutrophils # (1.8-7.7) K/mm3 PT (12.2-14.9) Sec. INR (0.87-1.13) APTT (24.2-36.6) Sec. VBG pH (7.320-7.420) Potassium (3.6-5.0) mmol/L Chloride (98-107) mmol/L BUN (9-20) mg/dL Creatinine (0.8-1.5) mg/dL Glucose (75-100) mg/dL POC Glucose 117 H (70-105) Calcium (8.4-10.2) mg/dL Magnesium (1.7-2.3) mg/dL Total Protein (6.3-8.2) g/dL Albumin (3.9-5) g/dL Ur Specific [place] (1.003-1.030) Urine WBC (Auto) (0.0-6.0) /HPF - Imaging and Cardiology CT scan - abdomen: report reviewed Assessment and Plan 1. Abd distention - most c/w constipatio or with relative ileus due to immobility and quadriplegia. Electrolyte abnormalities will certainly exacerbate matters. Doubt obstructing mass or infection. - aggressive correction of electrolytes by Hospitalist - consider D/C'ng abx as there is no clear need - Laxative suppository, and then, agree with Surgery evaluation
[2017-08-20] MEDS: DULCOLAX PR SCH (15:27)
[2017-08-20] MEDS: D5W/0.45% NACL/KCL 20 MEQ 20 MEQ/1,000 ML BAG IV SCH (16:46)
[2017-08-21] MEDS: NOVOLOG SUB-Q SCH ×4 (00:27→18:06)
[2017-08-21 04:55] LABS: Basophils % (Auto) 0.1 % (0.0-1.8); Eosinophils % (Auto) 0.1 % (0.0-4.3); Lymphocytes % (Auto) 19.4 % (13.4-35.0); Mean Corpuscular HGB Conc 32 % (32-34); Mean Corpuscular Hemoglobin 27 pg (28-32); Mean Corpuscular Volume 85 fl (84-94); Monocytes % (Auto) 9.7 % (0.0-7.3); Platelet Count 184 K/mm3 (140-440); Red Blood Count 4.02 M/mm3 (3.65-5.03); Red Cell Distribution Width 14.7 % (13.2-15.2)
[2017-08-21 05:12] LABS: BUN/Creatinine Ratio 23; Blood Urea Nitrogen 9 mg/dL (9-20); Calcium 8.3 mg/dL (8.4-10.2); Hemolysis Index 1
[2017-08-21] MEDS: ZOSYN/NS 4.5GM/100ML 4.5 GM/100 ML VIAL IV SCH ×3 (05:12→22:37)
[2017-08-21] MEDS: FLAGYL 500 MG/100 ML 500 MG/100 ML BAG IV SCH ×3 (06:00→21:21)
[2017-08-21] MEDS: KCL 10 MEQ in NACL 0.9% 100 ML IV SCH ×4 (07:51→11:10)
[2017-08-21] MEDS: KCL 10MEQ/100ML 10 MEQ/100 ML BAG IV SCH ×3 (08:52→10:32)
[2017-08-21] MEDS: DULCOLAX PR SCH (10:02)
--- NOTE | 2017-08-21 10:11 | Progress Note ---
Assessment and Plan Assessment and plan: Sepsis. POA. Pt. meets criteria with tachycardia, hypotension, leukocytosis and UTI. Sepsis pathway, IV abx, trend lactic acid levels, f/u Cx. Stool studies. Blood cultures revealed gram-positive cocci. We will start vancomycin and ID/await sensitivities UTI. As above. F/U Urine cx Abd distention. Surgery following. Gi consultation. Dm II. Acuchecks and SSRI HTN. Resume antihypertensive meds Left LE AKA hyopkalemia. Replete potassium History Interval history: No new complaints. Hospitalist Physical - Constitutional Vitals: Temp Pulse Resp BP Pulse Ox 100.2 F H 92 H 20 179/84 100 08/21/17 07:33 08/21/17 07:33 08/21/17 07:33 08/21/17 07:33 08/21/17 07:33 General appearance: Present: no acute distress - EENT Eyes: Present: PERRL, EOM intact ENT: hearing intact, clear oral mucosa, dentition normal - Neck Neck: Present: supple, normal ROM - Respiratory Respiratory effort: normal Respiratory: bilateral: CTA - Cardiovascular Rhythm: regular Heart Sounds: Present: S1 & S2. Absent: gallop, rub - Extremities Extremities: no ischemia, No edema, Full ROM - Abdominal General gastrointestinal: soft, non-tender, non-distended, normal bowel sounds - Integumentary Integumentary: Present: clear, warm, dry - Neurologic Neurologic: CNII-XII intact, moves all extremities Results - Labs CBC & Chem 7: 08/21/17 03:56 08/21/17 03:56 Labs: Laboratory Last Values WBC 10.3 K/mm3 (4.5-11.0) 08/21/17 03:56 RBC 4.02 M/mm3 (3.65-5.03) 08/21/17 03:56 Hgb 11.0 gm/dl (11.8-15.2) L 08/21/17 03:56 Hct 34.0 % (35.5-45.6) L 08/21/17 03:56 MCV 85 fl (84-94) 08/21/17 03:56 MCH 27 pg (28-32) L 08/21/17 03:56 MCHC 32 % (32-34) 08/21/17 03:56 RDW 14.7 % (13.2-15.2) 08/21/17 03:56 Plt Count 184 K/mm3 (140-440) 08/21/17 03:56 Lymph % (Auto) 19.4 % (13.4-35.0) 08/21/17 03:56 [place] % (Auto) 9.7 % (0.0-7.3) H 08/21/17 03:56 Eos % (Auto) 0.1 % (0.0-4.3) 08/21/17 03:56 Baso % (Auto) 0.1 % (0.0-1.8) 08/21/17 03:56 Lymph # 2.0 K/mm3 (1.2-5.4) 08/21/17 03:56 [place] # 1.0 K/mm3 (0.0-0.8) H 08/21/17 03:56 Eos # 0.0 K/mm3 (0.0-0.4) 08/21/17 03:56 Baso # 0.0 K/mm3 (0.0-0.1) 08/21/17 03:56 Seg Neutrophils % 70.7 % (40.0-70.0) H 08/21/17 03:56 Seg Neutrophils # 7.3 K/mm3 (1.8-7.7) 08/21/17 03:56 PT 20.3 Sec. (12.2-14.9) H 08/20/17 01:33 INR 1.63 (0.87-1.13) H 08/20/17 01:33 APTT 63.4 Sec. (24.2-36.6) H* 08/20/17 01:33 VBG pH 7.421 (7.320-7.420) H 08/20/17 02:54 Sodium 138 mmol/L (137-145) 08/21/17 03:56 Potassium 2.8 mmol/L (3.6-5.0) L* 08/21/17 03:56 Chloride 99.6 mmol/L (98-107) 08/21/17 03:56 Carbon Dioxide 23 mmol/L (22-30) 08/21/17 03:56 Anion Gap 18 mmol/L 08/21/17 03:56 BUN 9 mg/dL (9-20) 08/21/17 03:56 Creatinine 0.4 mg/dL (0.8-1.5) L 08/21/17 03:56 Estimated GFR > 60 ml/min 08/21/17 03:56 BUN/Creatinine Ratio 23 % 08/21/17 03:56 Glucose 127 mg/dL (75-100) H 08/21/17 03:56 POC Glucose 131 (70-105) H 08/21/17 05:56 Lactic Acid 1.00 mmol/L (0.7-2.0) 08/20/17 01:45 Calcium 8.3 mg/dL (8.4-10.2) L 08/21/17 03:56 Magnesium 1.60 mg/dL (1.7-2.3) L 08/20/17 02:30 Total Bilirubin 0.40 mg/dL (0.1-1.2) 08/20/17 01:27 AST 15 units/L (5-40) 08/20/17 01:27 ALT 15 units/L (7-56) 08/20/17 01:27 Alkaline Phosphatase 90 units/L (35-129) 08/20/17 01:27 Total Protein 5.7 g/dL (6.3-8.2) L 08/20/17 01:27 Albumin 3.2 g/dL (3.9-5) L 08/20/17 01:27 Albumin/Globulin Ratio 1.3 % 08/20/17 01:27 Lipase 13 units/L (13-60) 08/20/17 01:33 Urine Color Yellow (Yellow) 08/20/17 05:10 Urine Turbidity Clear (Clear) 08/20/17 05:10 Urine pH 6.0 (5.0-7.0) 08/20/17 05:10 Ur Specific [place] 1.058 (1.003-1.030) H 08/20/17 05:10 Urine Protein 30 mg/dl mg/dL (Negative) 08/20/17 05:10 Urine Glucose (UA) Neg mg/dL (Negative) 08/20/17 05:10 Urine Ketones Tr mg/dL (Negative) 08/20/17 05:10 Urine Blood Mod (Negative) 08/20/17 05:10 Urine Nitrite Pos (Negative) 08/20/17 05:10 Urine Bilirubin Neg (Negative) 08/20/17 05:10 Urine Urobilinogen < 2.0 mg/dL (<2.0) 08/20/17 05:10 Ur Leukocyte Esterase Lg (Negative) 08/20/17 05:10 Urine WBC (Auto) 164.0 /HPF (0.0-6.0) H 08/20/17 05:10 Urine RBC (Auto) 29.0 /HPF (0.0-6.0) 08/20/17 05:10 Urine Bacteria (Auto) 2+ /HPF (Negative) 08/20/17 05:10 Urine WBC Clumps 2+ /HPF 08/20/17 05:10 Urine Mucus Few /HPF 08/20/17 05:10 Urine Yeast (Budding) 2+ /HPF 08/20/17 05:10 Blood Type O POSITIVE 08/20/17 01:33 Antibody Screen Negative 08/20/17 01:33
[2017-08-21] MEDS ORDERED: VANCOMYCIN PHARMACY TO DOSE IV SCH (12:00)
[2017-08-21] MEDS: VANCOMYCIN/0.45 NS 1 GM/250 ML 1 GM/250 ML BAG IV SCH (12:08)
--- NOTE | 2017-08-21 13:56 | Progress Note ---
Assessment and Plan 1. Abd distention - most c/w constipation or with relative ileus due to immobility and quadriplegia. Much improved after laxatives. Electrolyte abnormalities will certainly exacerbate matters. Doubt obstructing mass or infection. - aggressive correction of electrolytes by Hospitalist - discussed with Dr. Recinos - consider D/C'ng abx as there is no clear need - Laxative suppository given, and may need to give periodically - advance diet - check abd series Subjective Date of service: 08/21/17 Interval history: Pt received suppository, and had good results per nurse. Pt wants to drink. Objective - Constitutional Vitals: Vital Signs - 12hr 08/21/17 08/21/17 08/21/17 05:17 07:33 10:00 Temperature 98.6 F 100.2 F H Pulse Rate 92 H 89 Respiratory 18 20 18 Rate Blood Pressure 144/71 179/84 O2 Sat by Pulse 100 100 Oximetry 08/21/17 08/21/17 10:35 10:42 Temperature 99.0 F Pulse Rate Respiratory 18 Rate Blood Pressure 149/88 O2 Sat by Pulse Oximetry General appearance: Present: no acute distress - EENT Eyes: PERRL, EOM intact ENT: hearing intact - Respiratory Respiratory effort: normal - Gastrointestinal General gastrointestinal: Present: soft, non-tender, distended (but softer) - Labs CBC & Chem 7: 08/21/17 03:56 08/21/17 03:56 Labs: Abnormal lab results 08/20/17 08/21/17 08/21/17 Range/Units 18:16 00:25 03:56 Hgb 11.0 L (11.8-15.2) gm/dl Hct 34.0 L (35.5-45.6) % MCH 27 L (28-32) pg [place] % (Auto) 9.7 H (0.0-7.3) % [place] # 1.0 H (0.0-0.8) K/mm3 Seg Neutrophils % 70.7 H (40.0-70.0) % Potassium (3.6-5.0) mmol/L Creatinine (0.8-1.5) mg/dL Glucose (75-100) mg/dL POC Glucose 151 H 122 H (70-105) Calcium (8.4-10.2) mg/dL 0208/21/17 08/21/17 Range/Units 03:56 05:56 12:14 Hgb (11.8-15.2) gm/dl Hct (35.5-45.6) % MCH (28-32) pg [place] % (Auto) (0.0-7.3) % [place] # (0.0-0.8) K/mm3 Seg Neutrophils % (40.0-70.0) % Potassium 2.8 L* (3.6-5.0) mmol/L Creatinine 0.4 L (0.8-1.5) mg/dL Glucose 127 H (75-100) mg/dL POC Glucose 131 H 112 H (70-105) Calcium 8.3 L (8.4-10.2) mg/dL
--- NOTE | 2017-08-21 16:50 | XRay Report ---
FINAL REPORT PROCEDURE: Abdomen. TECHNIQUE: Portable supine and upright views. HISTORY: Follow-up: Distension. COMPARISON: Abdomen 03/20/2016. FINDINGS: There is a loop of sigmoid colon which is moderately severely distended. The maximum diameter measures approximately 13.3 centimeters. This portion of the colon does not appear to have normal haustra markings. This may represent nonobstructive distension. A sigmoid volvulus is not entirely excluded however. This would be best excluded with a barium enema. The soft tissues are unremarkable. An IVC filter is present. The regional skeleton appears intact. There is no evidence of pneumoperitoneum. IMPRESSION: Indeterminate distension of the sigmoid colon as discussed above.
--- NOTE | 2017-08-21 17:38 | Progress Note ---
Assessment and Plan - Patient Problems (1) Abdominal distension Current Visit: Yes Status: Acute Plan to address problem: Pt does not have an acute abdomen. Doubt there is an infection involving intestines. Pt appears better with conservative management. Pt having bowel movements. Continue conservative medical care. No need for surgical intervention. will sign off. Please call with questions. thank you. time=15min Subjective Date of service: 08/21/17 Patient Reports: Positive: no new complaints, other (no abdominal pain. Pt having BMs. just had one and staff is cleaning right now) Objective Vital Signs - 12hr 08/21/17 08/21/17 08/21/17 07:33 10:00 10:35 Temperature 100.2 F H Pulse Rate 92 H 89 Respiratory 20 18 18 Rate Blood Pressure 179/84 149/88 O2 Sat by Pulse 100 100 Oximetry 08/21/17 08/21/17 10:42 15:29 Temperature 99.0 F 98.3 F Pulse Rate 88 Respiratory 22 Rate Blood Pressure 146/76 O2 Sat by Pulse 98 Oximetry - General physical appearance no distress, no pain - Respiratory normal expansion, normal respiratory effort - Abdomen soft, not tender, bowel sounds normal, distended, not guarding, not rigid - Labs 08/21/17 03:56 08/21/17 03:56 Diabetes panel 08/21/17 Range/Units 03:56 Sodium 138 (137-145) mmol/L Potassium 2.8 L* (3.6-5.0) mmol/L Chloride 99.6 (98-107) mmol/L Carbon Dioxide 23 (22-30) mmol/L BUN 9 (9-20) mg/dL Creatinine 0.4 L (0.8-1.5) mg/dL Glucose 127 H (75-100) mg/dL Calcium 8.3 L (8.4-10.2) mg/dL Calcium panel 08/21/17 Range/Units 03:56 Calcium 8.3 L (8.4-10.2) mg/dL Pituitary panel 08/21/17 Range/Units 03:56 Sodium 138 (137-145) mmol/L Potassium 2.8 L* (3.6-5.0) mmol/L Chloride 99.6 (98-107) mmol/L Carbon Dioxide 23 (22-30) mmol/L BUN 9 (9-20) mg/dL Creatinine 0.4 L (0.8-1.5) mg/dL Glucose 127 H (75-100) mg/dL Calcium 8.3 L (8.4-10.2) mg/dL Adrenal panel 08/21/17 Range/Units 03:56 Sodium 138 (137-145) mmol/L Potassium 2.8 L* (3.6-5.0) mmol/L Chloride 99.6 (98-107) mmol/L Carbon Dioxide 23 (22-30) mmol/L BUN 9 (9-20) mg/dL Creatinine 0.4 L (0.8-1.5) mg/dL Glucose 127 H (75-100) mg/dL Calcium 8.3 L (8.4-10.2) mg/dL
[2017-08-21] MEDS: D5W/0.45% NACL/KCL 20 MEQ 20 MEQ/1,000 ML BAG IV SCH (18:00)
[2017-08-22] MEDS: NOVOLOG SUB-Q SCH ×4 (00:21→18:22)
[2017-08-22] MEDS: VANCOMYCIN/0.45 NS 1 GM/250 ML 1 GM/250 ML BAG IV SCH (01:10)
[2017-08-22] MEDS: ZOSYN/NS 4.5GM/100ML 4.5 GM/100 ML VIAL IV SCH (06:00)
[2017-08-22] MEDS: FLAGYL 500 MG/100 ML 500 MG/100 ML BAG IV SCH (06:43)
[2017-08-22] MEDS: DULCOLAX PR SCH (09:50)
--- NOTE | 2017-08-22 10:54 | Progress Note ---
Assessment and Plan Assessment and plan: Sepsis. Resolving. Blood cultures revealed gram-positive cocci. However, I suspect this is a contaminant. We will follow off antibiotics. UTI. As above. F/U Urine cx Abd distention. Surgery following. Etiology is likely relative ileus due to immobility and quadriplegia. Replete electrolytes as this may exacerbate matters. Follow BMP. Dm II. Acuchecks and SSRI HTN. Resume antihypertensive meds Left LE AKA hyopkalemia. Replete potassium History Interval history: No new complaints. Hospitalist Physical - Constitutional Vitals: Temp Pulse Resp BP Pulse Ox 99.1 F 103 H 20 167/80 98 08/22/17 08:09 08/22/17 10:00 08/22/17 10:02 08/22/17 08:09 08/22/17 10:02 General appearance: Present: no acute distress - EENT Eyes: Present: PERRL, EOM intact ENT: hearing intact, clear oral mucosa, dentition normal - Neck Neck: Present: supple, normal ROM - Respiratory Respiratory effort: normal Respiratory: bilateral: CTA - Cardiovascular Rhythm: regular Heart Sounds: Present: S1 & S2. Absent: gallop, rub - Extremities Extremities: no ischemia, No edema, Full ROM - Abdominal General gastrointestinal: soft, non-tender, non-distended, normal bowel sounds - Integumentary Integumentary: Present: clear, warm, dry - Neurologic Neurologic: CNII-XII intact, moves all extremities Results - Labs CBC & Chem 7: 08/21/17 03:56 08/21/17 03:56 Labs: Laboratory Last Values WBC 10.3 K/mm3 (4.5-11.0) 08/21/17 03:56 RBC 4.02 M/mm3 (3.65-5.03) 08/21/17 03:56 Hgb 11.0 gm/dl (11.8-15.2) L 08/21/17 03:56 Hct 34.0 % (35.5-45.6) L 08/21/17 03:56 MCV 85 fl (84-94) 08/21/17 03:56 MCH 27 pg (28-32) L 08/21/17 03:56 MCHC 32 % (32-34) 08/21/17 03:56 RDW 14.7 % (13.2-15.2) 08/21/17 03:56 Plt Count 184 K/mm3 (140-440) 08/21/17 03:56 Lymph % (Auto) 19.4 % (13.4-35.0) 08/21/17 03:56 [place] % (Auto) 9.7 % (0.0-7.3) H 08/21/17 03:56 Eos % (Auto) 0.1 % (0.0-4.3) 08/21/17 03:56 Baso % (Auto) 0.1 % (0.0-1.8) 08/21/17 03:56 Lymph # 2.0 K/mm3 (1.2-5.4) 08/21/17 03:56 [place] # 1.0 K/mm3 (0.0-0.8) H 08/21/17 03:56 Eos # 0.0 K/mm3 (0.0-0.4) 08/21/17 03:56 Baso # 0.0 K/mm3 (0.0-0.1) 08/21/17 03:56 Seg Neutrophils % 70.7 % (40.0-70.0) H 08/21/17 03:56 Seg Neutrophils # 7.3 K/mm3 (1.8-7.7) 08/21/17 03:56 PT 20.3 Sec. (12.2-14.9) H 08/20/17 01:33 INR 1.63 (0.87-1.13) H 08/20/17 01:33 APTT 63.4 Sec. (24.2-36.6) H* 08/20/17 01:33 VBG pH 7.421 (7.320-7.420) H 08/20/17 02:54 Sodium 138 mmol/L (137-145) 08/21/17 03:56 Potassium 2.8 mmol/L (3.6-5.0) L* 08/21/17 03:56 Chloride 99.6 mmol/L (98-107) 08/21/17 03:56 Carbon Dioxide 23 mmol/L (22-30) 08/21/17 03:56 Anion Gap 18 mmol/L 08/21/17 03:56 BUN 9 mg/dL (9-20) 08/21/17 03:56 Creatinine 0.4 mg/dL (0.8-1.5) L 08/21/17 03:56 Estimated GFR > 60 ml/min 08/21/17 03:56 BUN/Creatinine Ratio 23 % 08/21/17 03:56 Glucose 127 mg/dL (75-100) H 08/21/17 03:56 POC Glucose 177 (70-105) H 08/22/17 07:40 Lactic Acid 1.00 mmol/L (0.7-2.0) 08/20/17 01:45 Calcium 8.3 mg/dL (8.4-10.2) L 08/21/17 03:56 Magnesium 1.60 mg/dL (1.7-2.3) L 08/20/17 02:30 Total Bilirubin 0.40 mg/dL (0.1-1.2) 08/20/17 01:27 AST 15 units/L (5-40) 08/20/17 01:27 ALT 15 units/L (7-56) 08/20/17 01:27 Alkaline Phosphatase 90 units/L (35-129) 08/20/17 01:27 Total Protein 5.7 g/dL (6.3-8.2) L 08/20/17 01:27 Albumin 3.2 g/dL (3.9-5) L 08/20/17 01:27 Albumin/Globulin Ratio 1.3 % 08/20/17 01:27 Lipase 13 units/L (13-60) 08/20/17 01:33 Urine Color Yellow (Yellow) 08/20/17 05:10 Urine Turbidity Clear (Clear) 08/20/17 05:10 Urine pH 6.0 (5.0-7.0) 08/20/17 05:10 Ur Specific [place] 1.058 (1.003-1.030) H 08/20/17 05:10 Urine Protein 30 mg/dl mg/dL (Negative) 08/20/17 05:10 Urine Glucose (UA) Neg mg/dL (Negative) 08/20/17 05:10 Urine Ketones Tr mg/dL (Negative) 08/20/17 05:10 Urine Blood Mod (Negative) 08/20/17 05:10 Urine Nitrite Pos (Negative) 08/20/17 05:10 Urine Bilirubin Neg (Negative) 08/20/17 05:10 Urine Urobilinogen < 2.0 mg/dL (<2.0) 08/20/17 05:10 Ur Leukocyte Esterase Lg (Negative) 08/20/17 05:10 Urine WBC (Auto) 164.0 /HPF (0.0-6.0) H 08/20/17 05:10 Urine RBC (Auto) 29.0 /HPF (0.0-6.0) 08/20/17 05:10 Urine Bacteria (Auto) 2+ /HPF (Negative) 08/20/17 05:10 Urine WBC Clumps 2+ /HPF 08/20/17 05:10 Urine Mucus Few /HPF 08/20/17 05:10 Urine Yeast (Budding) 2+ /HPF 08/20/17 05:10 Blood Type O POSITIVE 08/20/17 01:33 Antibody Screen Negative 08/20/17 01:33
--- NOTE | 2017-08-22 12:33 | Gastroenterology Progress Note ---
Assessment and Plan - Patient Problems (1) Colonic inertia Current Visit: Yes Status: Acute Plan to address problem: - Patient improving with conservative measures; likely from combination neurologic injury and acute hypokalemia. - Senna PO daily and Dulcolax [place] daily for bowel regimen (will need this long- term). - OK to d/c home per our service; please call as needed; will sign off. Subjective Date of service: 08/22/17 Principal diagnosis: Colonic Ileus Interval history: The patient had 2 more BMs overnight. He has had no N/V/abdominal pain and is tolerating his diet. No blood witnessed in the BM. Objective - Constitutional Vitals: Temp Pulse Resp BP Pulse Ox 99.1 F 103 H 20 167/80 98 08/22/17 08:09 08/22/17 10:00 08/22/17 10:02 08/22/17 08:09 08/22/17 10:02 General appearance: no acute distress - Respiratory Respiratory effort: normal Respiratory: bilateral: CTA - Cardiovascular Rhythm: regular Heart Sounds: Present: S1 & S2 - Gastrointestinal General gastrointestinal: Present: soft, non-tender, distended (Mild, and (+) bowel sounds) - Labs CBC & Chem 7: 08/21/17 03:56 08/21/17 03:56 Labs: Laboratory Results - last 24 hr 08/21/17 08/21/17 08/22/17 17:45 21:59 05:57 POC Glucose 110 H 149 H 190 H 08/22/17 08/22/17 07:40 11:48 POC Glucose 177 H 159 H
[2017-08-22] MEDS: D5W/0.45% NACL/KCL 20 MEQ 20 MEQ/1,000 ML BAG IV SCH (14:57)
[2017-08-22 16:50] LABS: BUN/Creatinine Ratio 10; Blood Urea Nitrogen 5 mg/dL (9-20); Hemolysis Index 4
[2017-08-22] MEDS ORDERED: K-DUR PO SCH (18:30)
[2017-08-22] MEDS ORDERED: K-DUR PO ONE (18:30)
[2017-08-22] MEDS: TYLENOL PO PRN (19:38)
[2017-08-22] MEDS: SENOKOT S PO SCH (21:49)
[2017-08-23] MEDS: NOVOLOG SUB-Q SCH ×4 (00:44→17:55)
[2017-08-23] MEDS: K-DUR PO SCH ×3 (00:45→06:16)
[2017-08-23] MEDS: D5W/0.45% NACL/KCL 20 MEQ 20 MEQ/1,000 ML BAG IV SCH ×2 (07:22→23:58)
[2017-08-23] MEDS: DULCOLAX PR SCH (10:38)
--- NOTE | 2017-08-23 10:56 | Progress Note ---
Assessment and Plan Assessment and plan: Sepsis. Blood cultures revealed coag negative staph which likely represents a contaminant. Patient with fever yesterday. Restart antibiotics. Polymicrobial UTI. As above. F/U Urine cx. Abd distention. Surgery following. Etiology is likely relative ileus due to immobility and quadriplegia. Replete electrolytes as this may exacerbate matters. Follow BMP. Dm II. Acuchecks and SSRI HTN. Resume antihypertensive meds Left LE AKA hyopkalemia. Replete potassium History Interval history: No new complaints. Patient still with fever yesterday. Hospitalist Physical - Constitutional Vitals: Temp Pulse Resp BP Pulse Ox 98.3 F 78 18 145/76 99 08/23/17 05:04 08/23/17 08:30 08/23/17 08:00 08/23/17 08:00 08/23/17 08:30 General appearance: Present: no acute distress - EENT Eyes: Present: PERRL, EOM intact ENT: hearing intact, clear oral mucosa, dentition normal - Neck Neck: Present: supple, normal ROM - Respiratory Respiratory effort: normal Respiratory: bilateral: CTA - Cardiovascular Rhythm: regular Heart Sounds: Present: S1 & S2. Absent: gallop, rub - Extremities Extremities: no ischemia, No edema, Full ROM - Abdominal General gastrointestinal: soft, non-tender, non-distended, normal bowel sounds - Integumentary Integumentary: Present: clear, warm, dry - Neurologic Neurologic: CNII-XII intact, moves all extremities Results - Labs CBC & Chem 7: 08/21/17 03:56 08/22/17 16:18 Labs: Laboratory Last Values WBC 10.3 K/mm3 (4.5-11.0) 08/21/17 03:56 RBC 4.02 M/mm3 (3.65-5.03) 08/21/17 03:56 Hgb 11.0 gm/dl (11.8-15.2) L 08/21/17 03:56 Hct 34.0 % (35.5-45.6) L 08/21/17 03:56 MCV 85 fl (84-94) 08/21/17 03:56 MCH 27 pg (28-32) L 08/21/17 03:56 MCHC 32 % (32-34) 08/21/17 03:56 RDW 14.7 % (13.2-15.2) 08/21/17 03:56 Plt Count 184 K/mm3 (140-440) 08/21/17 03:56 Lymph % (Auto) 19.4 % (13.4-35.0) 08/21/17 03:56 [place] % (Auto) 9.7 % (0.0-7.3) H 08/21/17 03:56 Eos % (Auto) 0.1 % (0.0-4.3) 08/21/17 03:56 Baso % (Auto) 0.1 % (0.0-1.8) 08/21/17 03:56 Lymph # 2.0 K/mm3 (1.2-5.4) 08/21/17 03:56 [place] # 1.0 K/mm3 (0.0-0.8) H 08/21/17 03:56 Eos # 0.0 K/mm3 (0.0-0.4) 08/21/17 03:56 Baso # 0.0 K/mm3 (0.0-0.1) 08/21/17 03:56 Seg Neutrophils % 70.7 % (40.0-70.0) H 08/21/17 03:56 Seg Neutrophils # 7.3 K/mm3 (1.8-7.7) 08/21/17 03:56 PT 20.3 Sec. (12.2-14.9) H 08/20/17 01:33 INR 1.63 (0.87-1.13) H 08/20/17 01:33 APTT 63.4 Sec. (24.2-36.6) H* 08/20/17 01:33 VBG pH 7.421 (7.320-7.420) H 08/20/17 02:54 Sodium 131 mmol/L (137-145) L D 08/22/17 16:18 Potassium 2.3 mmol/L (3.6-5.0) L* 08/22/17 16:18 Chloride 94.3 mmol/L (98-107) L 08/22/17 16:18 Carbon Dioxide 18 mmol/L (22-30) L 08/22/17 16:18 Anion Gap 21 mmol/L 02/10/18 16:18 BUN 5 mg/dL (9-20) L 08/22/17 16:18 Creatinine 0.5 mg/dL (0.8-1.5) L 08/22/17 16:18 Estimated GFR > 60 ml/min 08/22/17 16:18 BUN/Creatinine Ratio 10 % 08/22/17 16:18 Glucose 198 mg/dL (75-100) H 08/22/17 16:18 POC Glucose 185 (70-105) H 08/23/17 06:23 Lactic Acid 1.00 mmol/L (0.7-2.0) 08/20/17 01:45 Calcium 8.0 mg/dL (8.4-10.2) L 08/22/17 16:18 Magnesium 1.60 mg/dL (1.7-2.3) L 08/20/17 02:30 Total Bilirubin 0.40 mg/dL (0.1-1.2) 08/20/17 01:27 AST 15 units/L (5-40) 08/20/17 01:27 ALT 15 units/L (7-56) 08/20/17 01:27 Alkaline Phosphatase 90 units/L (35-129) 08/20/17 01:27 Total Protein 5.7 g/dL (6.3-8.2) L 08/20/17 01:27 Albumin 3.2 g/dL (3.9-5) L 08/20/17 01:27 Albumin/Globulin Ratio 1.3 % 08/20/17 01:27 Lipase 13 units/L (13-60) 08/20/17 01:33 Urine Color Yellow (Yellow) 08/20/17 05:10 Urine Turbidity Clear (Clear) 08/20/17 05:10 Urine pH 6.0 (5.0-7.0) 08/20/17 05:10 Ur Specific [place] 1.058 (1.003-1.030) H 08/20/17 05:10 Urine Protein 30 mg/dl mg/dL (Negative) 08/20/17 05:10 Urine Glucose (UA) Neg mg/dL (Negative) 08/20/17 05:10 Urine Ketones Tr mg/dL (Negative) 08/20/17 05:10 Urine Blood Mod (Negative) 08/20/17 05:10 Urine Nitrite Pos (Negative) 08/20/17 05:10 Urine Bilirubin Neg (Negative) 08/20/17 05:10 Urine Urobilinogen < 2.0 mg/dL (<2.0) 08/20/17 05:10 Ur Leukocyte Esterase Lg (Negative) 08/20/17 05:10 Urine WBC (Auto) 164.0 /HPF (0.0-6.0) H 08/20/17 05:10 Urine RBC (Auto) 29.0 /HPF (0.0-6.0) 08/20/17 05:10 Urine Bacteria (Auto) 2+ /HPF (Negative) 08/20/17 05:10 Urine WBC Clumps 2+ /HPF 08/20/17 05:10 Urine Mucus Few /HPF 08/20/17 05:10 Urine Yeast (Budding) 2+ /HPF 08/20/17 05:10 Blood Type O POSITIVE 08/20/17 01:33 Antibody Screen Negative 08/20/17 01:33
[2017-08-23] MEDS: cefTRIAXone 1 GM in NACL 0.9% 20 ML IV SCH (12:20)
[2017-08-23 14:37] LABS: Basophils % (Auto) 0.1 % (0.0-1.8); Eosinophils % (Auto) 0.1 % (0.0-4.3); Hematocrit 34.8 % (35.5-45.6); Hemoglobin 11.5 gm/dl (11.8-15.2); Lymphocytes # (Auto) 2.1 K/mm3 (1.2-5.4); Lymphocytes % (Auto) 20.4 % (13.4-35.0); Mean Corpuscular HGB Conc 33 % (32-34); Mean Corpuscular Hemoglobin 27 pg (28-32); Mean Corpuscular Volume 82 fl (84-94); Monocytes # (Auto) 1.2 K/mm3 (0.0-0.8); Monocytes % (Auto) 11.4 % (0.0-7.3); Platelet Count 232 K/mm3 (140-440); Red Blood Count 4.26 M/mm3 (3.65-5.03); Red Cell Distribution Width 14.5 % (13.2-15.2)
[2017-08-23 14:56] LABS: BUN/Creatinine Ratio 10; Blood Urea Nitrogen 5 mg/dL (9-20); Calcium 8.2 mg/dL (8.4-10.2); Hemolysis Index 8
--- NOTE | 2017-08-23 15:19 | Consultation ---
History of Present Illness - Reason for Consult Consult date: 08/23/17 fever Requesting physician: UMU MCPHERSON - History of Present Illness 67 years old male with history of diabetes, NE, hypertension, renal sufficiency , quadriplegia, neurogenic bladder s/p SP cath, left leg AKA, and previous appendectomy, chronic penile and sacral wounds; admitted on 08/20/2017 due to 48h history of progressive abdominal distention associated with nausea and vomiting 1 as well as subjective fever. Patient has reported dry cough for the last 48 hours. [facility] [place] the jail, but noted diarrhea here. Patient lives in a jail, however it does not report any sick contacts. Denies any SOB, chest congestion, runny nose, sore throat. In the emergency room, initial temperature was 100, which then went to 101.4. Heart rate 81. Respiration 22. O2 sat 94%. Blood pressure 88/47. Initial white count 12.2. Hemoglobin 10.7. Latest 200. Potassium 2.7. Creatinine 0.5. Urinalysis showed large leukocyte esterase and [address] of the abdomen showed a distended distal sigmoid colon and rectum with air fluid levels. It was no pneumoperitoneum, abscess or colitis. CXR showing right lower lobe density. Microbiology: Blood cultures: 08/20 ngtd Urine cultures: 08/20 100K mixed bacteria Current Antimicrobials: none Previous Antimicrobials: ceftriaxone Past History Past Medical History: acute NE, diabetes, DVT, other (renal insufficiency, history of DVT, quadriplegia, ) Past Surgical History: appendectomy, Other (Left AKA amputation, suprapubic catheter placement) Social history: other (lives in jail). denies: smoking, alcohol abuse, IV drug use Family history: no significant family history Medications and Allergies Allergies Allergy/AdvReac Type Severity Reaction Status Date / Time No Known Allergies Allergy Verified 05/27/17 03:08 Home Medications Medication Instructions Recorded Confirmed Last Taken Type Acetaminophen [Pain Reliever] 500 mg PO QDAY #30 tablet 06/10/13 08/20/17 1 Day Ago Rx ~04/26/17 Citalopram [Celexa] 20 mg PO QDAY #30 tablet 06/10/13 08/20/17 1 Day Ago Rx ~04/26/17 Ferrous Sulfate [Feosol] 325 mg PO BID #60 tablet 06/10/13 08/20/17 1 Day Ago Rx ~04/26/17 Simvastatin 20 mg PO QHS #30 tablet 06/10/13 08/20/17 1 Day Ago Rx ~04/26/17 Sucralfate [Carafate] 1 gm PO Q6HR #30 oral.liqd 11/19/13 08/20/17 1 Day Ago Rx ~04/26/17 Ascorbic Acid [Vitamin C] 500 mg PO QDAY 03/27/14 08/20/17 1 Day Ago History ~04/26/17 Lactobacillus Acidophilus 1 each PO Q8HR 03/27/14 08/20/17 1 Day Ago History [Acidophilus] ~04/26/17 Lisinopril 5 mg PO DAILY 03/27/14 08/20/17 1 Day Ago History ~04/26/17 Mirtazapine [Remeron] 7.5 mg PO QHS 02/16/15 08/20/17 1 Day Ago History ~04/26/17 Warfarin [Coumadin] 5 mg PO QHS 06/28/15 08/20/17 1 Day Ago History ~04/26/17 Docusate Sodium [Colace CAP] 100 mg PO BID PRN #20 capsule 01/07/16 08/20/17 1 Day Ago Rx ~04/26/17 Esomeprazole Magnesium [NexIUM] 40 mg PO DAILY 03/20/16 08/20/17 1 Day Ago History ~04/26/17 Insulin Aspart Prot/Aspart(Nf) 0 units SUB-Q ACHS PRN 03/20/16 08/20/17 1 Day Ago History [NovoLOG Mix 70/30 VIAL] ~04/26/17 metFORMIN [Glucophage] 500 mg PO BID 03/20/16 08/20/17 1 Day Ago History ~04/26/17 Nitrofurantoin [place]/M-Cryst 100 mg PO Q12HR #30 capsule 04/13/16 08/20/17 1 Day Ago Rx [Macrobid CAP] ~04/26/17 traMADol [Ultram 50 MG tab] 50 mg PO Q6HR PRN #15 tablet 05/27/17 08/20/17 Unknown Rx Active Meds: Active Medications Acetaminophen (Tylenol) 650 mg PO Q4H PRN PRN Reason: Pain MILD(1-3)/Fever >100.5/CROFT Last Admin: 08/22/17 19:38 Dose: 650 mg Bisacodyl (Dulcolax) 10 mg SC QDAY [facility] Stop: 08/25/17 15:29 Last Admin: 08/23/17 10:38 Dose: 10 mg Dextrose (D50w (25gm) Syringe) 50 ml IV PRN PRN PRN Reason: Hypoglycemia Potassium Chloride/Dextrose/Sod Cl (D5w/0.45% Nacl/Kcl 20 Meq) 20 meq in 1,000 mls @ 75 mls/hr IV DIRECT [facility] Last Admin: 08/23/17 07:22 Dose: 75 mls/hr Ceftriaxone Sodium 1 gm/ (Sodium Chloride) 20 mls @ 20 mls/10 min IV Q24H [facility] Last Admin: 08/23/17 12:20 Dose: 20 mls/10 min Insulin Aspart (Novolog) 0 units SUB-Q Q6HR SAUD PRN Reason: Protocol Last Admin: 08/23/17 12:21 Dose: 3 units Magnesium Hydroxide (Milk Of Magnesia) 30 ml PO Q4H PRN PRN Reason: Constipation Ondansetron HCl (Zofran) 4 mg IV Q8H PRN PRN Reason: N/V unrelieved by Reglan Senna/Docusate Sodium (Senokot S) 2 tab PO QHS [facility] Last Admin: 08/22/17 21:49 Dose: 2 tab Review of Systems All systems: negative (as per HPI rest neg) Physical Examination - Physical Exam Narrative exam: General appearance: Alert in NAD, conversant Eyes: anicteric sclerae, moist conjunctivae; no lid-lag; PERRLA HENT: Atraumatic; oropharynx clear Neck: Trachea midline; supple, no thyromegaly or lymphadenopathy Lungs: shaye distant BS CV: RRR Abdomen: tense distended decreased BS +SP cath Extremities: left AKA Skin: extensive chronic sacral excoriation, chronic penile shaft wounds Psych: Appropriate affect, alert and oriented to person, place and time. Neuro: alert and oriented x 3. quadriplegic - Constitutional Vitals: Vital Signs Temp Pulse Resp BP Pulse Ox 98.3 F 93 H 18 145/76 99 08/23/17 05:04 08/23/17 10:00 08/23/17 10:00 08/23/17 08:00 08/23/17 10:00 Temperature -Last 24 Hours Temperature 98.3 F Temperature 101.1 F Results - Labs CBC & Chem 7: 08/23/17 14:10 08/23/17 14:10 Labs: Abnormal lab results 08/22/17 08/22/17 08/23/17 Range/Units 16:18 18:03 00:24 Hgb (11.8-15.2) gm/dl Hct (35.5-45.6) % MCV (84-94) fl MCH (28-32) pg [place] % (Auto) (0.0-7.3) % [place] # (0.0-0.8) K/mm3 Sodium 131 L D (137-145) mmol/L Potassium 2.3 L* (3.6-5.0) mmol/L Chloride 94.3 L (98-107) mmol/L Carbon Dioxide 18 L (22-30) mmol/L BUN 5 L (9-20) mg/dL Creatinine 0.5 L (0.8-1.5) mg/dL Glucose 198 H (75-100) mg/dL POC Glucose 199 H 214 H (70-105) Calcium 8.0 L (8.4-10.2) mg/dL 08/23/17 08/23/17 08/23/17 Range/Units 06:23 12:05 14:10 Hgb 11.5 L (11.8-15.2) gm/dl Hct 34.8 L (35.5-45.6) % MCV 82 L (84-94) fl MCH 27 L (28-32) pg [place] % (Auto) 11.4 H (0.0-7.3) % [place] # 1.2 H (0.0-0.8) K/mm3 Sodium (137-145) mmol/L Potassium (3.6-5.0) mmol/L Chloride (98-107) mmol/L Carbon Dioxide (22-30) mmol/L BUN (9-20) mg/dL Creatinine (0.8-1.5) mg/dL Glucose (75-100) mg/dL POC Glucose 185 H 213 H (70-105) Calcium (8.4-10.2) mg/dL 08/23/17 Range/Units 14:10 Hgb (11.8-15.2) gm/dl Hct (35.5-45.6) % MCV (84-94) fl MCH (28-32) pg [place] % (Auto) (0.0-7.3) % [place] # (0.0-0.8) K/mm3 Sodium 131 L (137-145) mmol/L Potassium 3.3 L D (3.6-5.0) mmol/L Chloride 96.4 L (98-107) mmol/L Carbon Dioxide (22-30) mmol/L BUN 5 L (9-20) mg/dL Creatinine 0.5 L (0.8-1.5) mg/dL Glucose 175 H (75-100) mg/dL POC Glucose (70-105) Calcium 8.2 L (8.4-10.2) mg/dL Assessment and Plan Assessment: 1) Sepsis: Present on admission, manifested by fever, hypotension, leukocytosis. Etiology most likely UTI, should r/o ? influenza ? asp pneumonia. 2) CA-UTI: pt with chronic SP cath, urine cx + mixed bacteria > 100K 3) Colon distention - of unclear etiology - now with diarrhea 4) Cough: CXR neg ? 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 from laxative - do not send C diff Thank you for your consultation, will follow up with you. Mechelle Cutler MD Infectious Diseases Specialist [facility] ([facility]) M [phone] O [phone]
[2017-08-23] MEDS: ZOSYN/NS 4.5GM/100ML 4.5 GM/100 ML VIAL IV SCH (17:18)
--- NOTE | 2017-08-23 17:38 | XRay Report ---
FINAL REPORT EXAM: XR ABDOMEN 1V AP HISTORY: eval for pneumoperitoneum/ IMAGES SUPINE TECHNIQUE: Supine abdomen portable PRIORS: Comparison is August 21, 2017 FINDINGS: There is worsening colonic distention with gas filled colonic loops. Cecum measuring 9 centimeters in transverse diameter. Air is seen in a few nondilated small bowel loops. On supine view no evidence for free air. IVC filter is noted. No specific evidence for bowel wall thickening IMPRESSION: increasing gaseous colonic distention. On supine view no signs for free air. If continuing clinical concern suggest decubitus or upright view IVC filter noted
--- NOTE | 2017-08-23 17:44 | XRay Report ---
FINAL REPORT EXAM: XR CHEST 1V AP HISTORY: eval for asp pneumonia/ INAGES SUPINE TECHNIQUE: upright single view chest PRIORS: None. FINDINGS: Cardiac and mediastinal contours are unremarkable. No focal pulmonary infiltrate is identified. No pleural fluid collection seen. Pulmonary vasculature is unremarkable. There is elevated right hemidiaphragm. IMPRESSION: Elevated right hemidiaphragm No acute findings in the chest.
[2017-08-23] MEDS: SENOKOT S PO SCH (21:24)
[2017-08-23] MEDS: TAMIFLU PO SCH (21:24)
[2017-08-24] MEDS: NOVOLOG SUB-Q SCH ×5 (00:15→23:09)
[2017-08-24] MEDS: ZOSYN/NS 4.5GM/100ML 4.5 GM/100 ML VIAL IV SCH ×3 (02:31→17:38)
[2017-08-24] MEDS ORDERED: KCL 10MEQ/100ML 10 MEQ/100 ML BAG IV ONE (07:16)
--- NOTE | 2017-08-24 07:16 | Progress Note ---
Assessment and Plan Assessment and plan: Sepsis. Blood cultures revealed coag negative staph which likely represents a contaminant. Patient with fever yesterday. Restarted antibiotics. ID following. Follow up CRP, influenza screen Polymicrobial UTI. As above. F/U Urine cx. Abd distention. Surgery following. Etiology is likely relative ileus due to immobility and quadriplegia. Replete electrolytes as needed. Follow BMP. Dm II. Acuchecks and SSRI HTN. Resume antihypertensive meds Left LE AKA hyopkalemia. Replete potassium History Interval history: No new complaints. Hospitalist Physical - Constitutional Vitals: Temp Pulse Resp BP Pulse Ox 98.2 F 84 18 111/56 100 08/24/17 05:24 08/24/17 05:24 08/24/17 05:24 08/24/17 05:24 08/24/17 05:24 General appearance: Present: no acute distress - EENT Eyes: Present: PERRL, EOM intact ENT: hearing intact, clear oral mucosa, dentition normal - Neck Neck: Present: supple, normal ROM - Respiratory Respiratory effort: normal Respiratory: bilateral: CTA - Cardiovascular Rhythm: regular Heart Sounds: Present: S1 & S2. Absent: gallop, rub - Extremities Extremities: no ischemia, No edema, Full ROM - Abdominal General gastrointestinal: soft, non-tender, non-distended, normal bowel sounds - Integumentary Integumentary: Present: clear, warm, dry - Neurologic Neurologic: CNII-XII intact, moves all extremities Results - Labs CBC & Chem 7: 08/23/17 14:10 08/23/17 14:10 Labs: Laboratory Last Values WBC 10.1 K/mm3 (4.5-11.0) 08/23/17 14:10 RBC 4.26 M/mm3 (3.65-5.03) 08/23/17 14:10 Hgb 11.5 gm/dl (11.8-15.2) L 08/23/17 14:10 Hct 34.8 % (35.5-45.6) L 08/23/17 14:10 MCV 82 fl (84-94) L 08/23/17 14:10 MCH 27 pg (28-32) L 08/23/17 14:10 MCHC 33 % (32-34) 08/23/17 14:10 RDW 14.5 % (13.2-15.2) 08/23/17 14:10 Plt Count 232 K/mm3 (140-440) 08/23/17 14:10 Lymph % (Auto) 20.4 % (13.4-35.0) 08/23/17 14:10 [place] % (Auto) 11.4 % (0.0-7.3) H 08/23/17 14:10 Eos % (Auto) 0.1 % (0.0-4.3) 08/23/17 14:10 Baso % (Auto) 0.1 % (0.0-1.8) 08/23/17 14:10 Lymph # 2.1 K/mm3 (1.2-5.4) 08/23/17 14:10 [place] # 1.2 K/mm3 (0.0-0.8) H 08/23/17 14:10 Eos # 0.0 K/mm3 (0.0-0.4) 08/23/17 14:10 Baso # 0.0 K/mm3 (0.0-0.1) 08/23/17 14:10 Seg Neutrophils % 68.0 % (40.0-70.0) 08/23/17 14:10 Seg Neutrophils # 6.9 K/mm3 (1.8-7.7) 08/23/17 14:10 PT 20.3 Sec. (12.2-14.9) H 08/20/17 01:33 INR 1.63 (0.87-1.13) H 08/20/17 01:33 APTT 63.4 Sec. (24.2-36.6) H* 08/20/17 01:33 VBG pH 7.421 (7.320-7.420) H 08/20/17 02:54 Sodium 131 mmol/L (137-145) L 08/23/17 14:10 Potassium 3.3 mmol/L (3.6-5.0) L D 08/23/17 14:10 Chloride 96.4 mmol/L (98-107) L 08/23/17 14:10 Carbon Dioxide 22 mmol/L (22-30) 08/23/17 14:10 Anion Gap 16 mmol/L 08/23/17 14:10 BUN 5 mg/dL (9-20) L 08/23/17 14:10 Creatinine 0.5 mg/dL (0.8-1.5) L 08/23/17 14:10 Estimated GFR > 60 ml/min 08/23/17 14:10 BUN/Creatinine Ratio 10 % 08/23/17 14:10 Glucose 175 mg/dL (75-100) H 08/23/17 14:10 POC Glucose 172 (70-105) H 08/24/17 06:36 Lactic Acid 1.00 mmol/L (0.7-2.0) 08/20/17 01:45 Calcium 8.2 mg/dL (8.4-10.2) L 08/23/17 14:10 Magnesium 1.60 mg/dL (1.7-2.3) L 08/20/17 02:30 Total Bilirubin 0.40 mg/dL (0.1-1.2) 08/20/17 01:27 AST 15 units/L (5-40) 08/20/17 01:27 ALT 15 units/L (7-56) 08/20/17 01:27 Alkaline Phosphatase 90 units/L (35-129) 08/20/17 01:27 C-Reactive Protein 12.90 mg/dL (0.00-1.30) H 08/23/17 14:10 Total Protein 5.7 g/dL (6.3-8.2) L 08/20/17 01:27 Albumin 3.2 g/dL (3.9-5) L 08/20/17 01:27 Albumin/Globulin Ratio 1.3 % 08/20/17 01:27 Lipase 13 units/L (13-60) 08/20/17 01:33 Urine Color Yellow (Yellow) 08/20/17 05:10 Urine Turbidity Clear (Clear) 08/20/17 05:10 Urine pH 6.0 (5.0-7.0) 08/20/17 05:10 Ur Specific [place] 1.058 (1.003-1.030) H 08/20/17 05:10 Urine Protein 30 mg/dl mg/dL (Negative) 08/20/17 05:10 Urine Glucose (UA) Neg mg/dL (Negative) 08/20/17 05:10 Urine Ketones Tr mg/dL (Negative) 08/20/17 05:10 Urine Blood Mod (Negative) 08/20/17 05:10 Urine Nitrite Pos (Negative) 08/20/17 05:10 Urine Bilirubin Neg (Negative) 08/20/17 05:10 Urine Urobilinogen < 2.0 mg/dL (<2.0) 08/20/17 05:10 Ur Leukocyte Esterase Lg (Negative) 08/20/17 05:10 Urine WBC (Auto) 164.0 /HPF (0.0-6.0) H 08/20/17 05:10 Urine RBC (Auto) 29.0 /HPF (0.0-6.0) 08/20/17 05:10 Urine Bacteria (Auto) 2+ /HPF (Negative) 08/20/17 05:10 Urine WBC Clumps 2+ /HPF 08/20/17 05:10 Urine Mucus Few /HPF 08/20/17 05:10 Urine Yeast (Budding) 2+ /HPF 08/20/17 05:10 Blood Type O POSITIVE 08/20/17 01:33 Antibody Screen Negative 08/20/17 01:33
[2017-08-24] MEDS ORDERED: KCL 10 MEQ in NACL 0.9% 100 ML IV ONE (07:45)
[2017-08-24] MEDS ORDERED: ROCEPHIN/NS 1 GM/50 ML 1 GM/50 ML BAG IV SCH (10:00)
--- NOTE | 2017-08-24 10:33 | Progress Note ---
Assessment and Plan Assessment: 1) Sepsis: Better. Etiology most likely UTI, should r/o ? influenza ? asp pneumonia. -CRP = 12.90 -repeat KUB showed increasing gaseous colonic distention. Clinical concerns suggest decubitus on upright view -repeat CXR PA lat showed increase right hemidiaphargm 2) CA-UTI: pt with chronic SP cath, urine cx + mixed bacteria > 100K 3) Colon distention - of unclear etiology - now with diarrhea 4) Cough: CXR neg ? RLL density c/w atelectasis 5) Quadriplegia 6) Neurogenic bladder s/p SP cath 7) History of left leg AKA 8) Chronic sacral and penile ulcers - non infected 9) Diarrhea-? laxative Plan: -check influenza antigen PCR in nasopharinx, cancelled, unknown reason -exchange SP cath -continue zosyn to cover UTI and presumed asp pneumonia day 2 -stop ceftriaxone -continue tamiflu day 2 of 5 empirically -surgery and GI on board -noted diarrhea ? from laxative - do not send C diff Thank you for your consultation, will follow up with you. Merlene Malcolm NP for Dr. Mechelle Cutler MD Infectious Diseases Specialist [facility] ([facility]) M [phone] O [phone] Subjective Date of service: 08/24/17 Principal diagnosis: Colonic Ileus Interval history: I am still having diarrhea, no fever Microbiology: Blood cultures: 08/20 ngtd Urine cultures: 08/20 100K mixed bacteria Current Antimicrobials: none Previous Antimicrobials: ceftriaxone Objective - Exam Narrative Exam: General appearance: Alert in NAD, conversant Eyes: anicteric sclerae, moist conjunctivae; no lid-lag; PERRLA HENT: Atraumatic; oropharynx clear Neck: Trachea midline; supple, no thyromegaly or lymphadenopathy Lungs: shaye distant BS CV: RRR Abdomen: tense distended decreased BS +SP cath, states diarrhea Extremities: left AKA Skin: extensive chronic sacral excoriation, chronic penile shaft wounds Psych: Appropriate affect, calm and cooperative Neuro: alert and oriented x 3. quadriplegic - Constitutional Vitals: Vital Signs Temp Pulse Resp BP Pulse Ox 98.2 F 74 20 142/70 100 08/24/17 07:35 08/24/17 07:35 08/24/17 07:35 08/24/17 07:35 08/24/17 07:35 Temperature -Last 24 Hours Temperature 98.2 F Temperature 98.2 F Temperature 97.9 F Temperature 98.4 F - Labs CBC & Chem 7: 08/23/17 14:10 08/23/17 14:10 Labs: Abnormal lab results 08/23/17 08/23/17 08/23/17 Range/Units 12:05 14:10 14:10 Hgb 11.5 L (11.8-15.2) gm/dl Hct 34.8 L (35.5-45.6) % MCV 82 L (84-94) fl MCH 27 L (28-32) pg [place] % (Auto) 11.4 H (0.0-7.3) % [place] # 1.2 H (0.0-0.8) K/mm3 Sodium 131 L (137-145) mmol/L Potassium 3.3 L D (3.6-5.0) mmol/L Chloride 96.4 L (98-107) mmol/L BUN 5 L (9-20) mg/dL Creatinine 0.5 L (0.8-1.5) mg/dL Glucose 175 H (75-100) mg/dL POC Glucose 213 H (70-105) Calcium 8.2 L (8.4-10.2) mg/dL C-Reactive Protein (0.00-1.30) mg/dL 08/23/17 08/23/17 08/24/17 Range/Units 14:10 17:48 00:07 Hgb (11.8-15.2) gm/dl Hct (35.5-45.6) % MCV (84-94) fl MCH (28-32) pg [place] % (Auto) (0.0-7.3) % [place] # (0.0-0.8) K/mm3 Sodium (137-145) mmol/L Potassium (3.6-5.0) mmol/L Chloride (98-107) mmol/L BUN (9-20) mg/dL Creatinine (0.8-1.5) mg/dL Glucose (75-100) mg/dL POC Glucose 144 H 234 H (70-105) Calcium (8.4-10.2) mg/dL C-Reactive Protein 12.90 H (0.00-1.30) mg/dL 08/24/17 Range/Units 06:36 Hgb (11.8-15.2) gm/dl Hct (35.5-45.6) % MCV (84-94) fl MCH (28-32) pg [place] % (Auto) (0.0-7.3) % [place] # (0.0-0.8) K/mm3 Sodium (137-145) mmol/L Potassium (3.6-5.0) mmol/L Chloride (98-107) mmol/L BUN (9-20) mg/dL Creatinine (0.8-1.5) mg/dL Glucose (75-100) mg/dL POC Glucose 172 H (70-105) Calcium (8.4-10.2) mg/dL C-Reactive Protein (0.00-1.30) mg/dL
[2017-08-24] MEDS: DULCOLAX PR SCH (11:15)
[2017-08-24] MEDS: TAMIFLU PO SCH ×2 (11:15→23:04)
[2017-08-24] MEDS: cefTRIAXone 1 GM in NACL 0.9% 20 ML IV SCH (12:58)
[2017-08-25] MEDS: SENOKOT S PO SCH (02:34)
[2017-08-25] MEDS: ZOSYN/NS 4.5GM/100ML 4.5 GM/100 ML VIAL IV SCH ×2 (02:42→10:41)
[2017-08-25] MEDS: NOVOLOG SUB-Q SCH ×3 (09:41→18:26)
--- NOTE | 2017-08-25 10:06 | Progress Note ---
<MERLENE MALCOLM - Last Filed: 08/25/17 12:50> Assessment and Plan Assessment: 1) Sepsis: Better. Etiology most likely UTI, should r/o ? influenza ? asp pneumonia. -CRP = 12.90 -repeat KUB showed increasing gaseous colonic distention. Clinical concerns suggest decubitus on upright view -repeat CXR PA lat showed increase right hemidiaphargm 2) CA-UTI: pt with chronic SP cath, urine cx + mixed bacteria > 100K 3) Colon distention - of unclear etiology - now with diarrhea 4) Cough: CXR neg ? RLL density c/w atelectasis 5) Quadriplegia 6) Neurogenic bladder s/p SP cath 7) History of left leg AKA 8) Chronic sacral and penile ulcers - non infected 9) Diarrhea-? laxative; Better Plan: -f/u exchange SP cath -continue zosyn to cover UTI and presumed asp pneumonia day 3 -continue tamiflu day 3 of 5 empirically -surgery and GI on board -repeat CRP -upon discharge will do clindamycin 300 mg po BID until 08/29 Thank you for your consultation, will follow up with you. Merlene Malcolm NP for Dr. Mechelle Cutler MD Infectious Diseases Specialist [facility] ([facility]) M [phone] O [phone] Subjective Date of service: 08/25/17 Principal diagnosis: Colonic Ileus Interval history: Diarrhea is better, no fever Microbiology: Blood cultures: 08/20 ngtd Urine cultures: 08/20 100K mixed bacteria Current Antimicrobials: zosyn 08/23 tamiflu 08/23 Previous Antimicrobials: ceftriaxone Objective - Exam Narrative Exam: General appearance: Alert in NAD, conversant Eyes: anicteric sclerae, moist conjunctivae; no lid-lag; PERRLA HENT: Atraumatic; oropharynx clear Neck: Trachea midline; supple, no thyromegaly or lymphadenopathy Lungs: diminished bilaterally CV: RRR Abdomen: tense distended decreased BS +SP cath, states diarrhea Extremities: left AKA Skin: extensive chronic sacral excoriation, chronic penile shaft wounds Psych: Appropriate affect, calm and cooperative Neuro: alert and oriented x 3. quadriplegic - Constitutional Vitals: Vital Signs Temp Pulse Resp BP Pulse Ox 98.4 F 66 18 122/56 100 08/25/17 07:53 08/25/17 07:53 08/25/17 07:53 08/25/17 07:53 08/25/17 07:53 Temperature -Last 24 Hours Temperature 98.4 F Temperature 98.4 F Temperature 98.2 F Temperature 98.7 F Temperature 98.7 F - Labs CBC & Chem 7: 08/23/17 14:10 08/23/17 14:10 Labs: Abnormal lab results 08/24/17 08/24/17 08/24/17 Range/Units 11:22 16:22 23:09 POC Glucose 149 H 192 H 198 H (70-105) 08/25/17 Range/Units 05:37 POC Glucose 132 H (70-105) <MECHELLE CABA - Last Filed: 08/25/17 14:57> Assessment and Plan I have personally interviewed and examined patient. I personally discussed and directed assessment and management with WELDER GAS Nballu. Upon discharge will do augmetin 875 mg PO BID until 08/29 to cover both UTI and pneumonia. Mechelle Kaiser MD Objective - Constitutional Vitals: Vital Signs Temp Pulse Resp BP Pulse Ox 98.4 F 68 18 122/56 100 08/25/17 07:53 08/25/17 10:00 08/25/17 07:53 08/25/17 07:53 08/25/17 07:53 Temperature -Last 24 Hours Temperature 98.4 F Temperature 98.4 F Temperature 98.2 F Temperature 98.7 F - Labs CBC & Chem 7: 08/23/17 14:10 08/23/17 14:10 Labs: Abnormal lab results 08/24/17 08/24/17 08/25/17 Range/Units 16:22 23:09 05:37 POC Glucose 192 H 198 H 132 H (70-105) 08/25/17 Range/Units 12:09 POC Glucose 232 H (70-105)
[2017-08-25] MEDS: TAMIFLU PO SCH (10:40)
[2017-08-25] MEDS: D5W/0.45% NACL/KCL 20 MEQ 20 MEQ/1,000 ML BAG IV SCH (10:40)
[2017-08-25] MEDS: TYLENOL PO PRN ×2 (10:40→16:29)
[2017-08-25] MEDS: DULCOLAX PR SCH (10:41)
[2017-08-25] MEDS: cefTRIAXone 1 GM in NACL 0.9% 20 ML IV SCH (12:56)
--- NOTE | 2017-08-25 15:28 | Discharge Summary ---
Providers - Providers Date of Admission: 08/20/17 06:06 Attending physician: JYOTI DILL MD 08/20/17 05:56 Consult to Physician [CONS] Urgent Consulting Provider: GABY JACKSON Reason For Exam: abd distention, afl and colon distention Notified:: y 08/20/17 10:09 Consult to Physician [CONS] Routine Consulting Provider: JOSE AVELAR Reason For Exam: abd distention Place consult to:: office Notified:: yes Phone number called:: [phone] If yes, spoke with:: zenia Bullock called:: 13:14 Comment:: radha 08/20/17 13:44 Consult to Wound/ET Nurse [CONS] Routine Reason For Exam: wound eval 08/23/17 10:57 Consult to Physician [CONS] Routine Consulting Provider: MARYBEL CABA Reason For Exam: uti, fever Place consult to:: DR. ROY Notified:: YES Phone number called:: [phone] Was contact made?: Yes If yes, spoke with:: DR. ROY Time called:: 08:38 Comment:: RADHA Primary care physician: ELEAN STEWART Hospitalization Reason for admission: Sepsis Condition: Stable [facility] Time spent for discharge: 31 minutes - Discharge Diagnoses (1) Abdominal distension Status: Acute (2) Decubital ulcer Status: Acute (3) Hypokalemia Status: Acute (4) Sepsis Status: Acute Qualifiers: Sepsis type: sepsis due to unspecified organism Qualified Code(s): A41.9 - Sepsis, unspecified organism (5) Quadriplegia Status: Chronic Core Measure Documentation - Palliative Care Palliative Care/ Comfort Measures: Not Applicable - Core Measures Any of the following diagnoses?: none Exam - Physical Exam Narrative exam: Not in cardiopulmonary distress. The patient appeared well nourished and normally developed. Vital signs as documented. Head exam is unremarkable. No scleral icterus . Neck is without jugular venous distension, thyromegaly, or carotid bruits. Lungs are clear to auscultation. Cardiac exam reveals regular rate and Rhythm. First and second heart sounds normal. No murmurs, rubs or gallops. Abdominal exam reveals normal bowel sounds, no masses, no organomegaly and no aortic enlargement. Extremities left AKA. 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 - Constitutional Vitals: Temp Pulse Resp BP Pulse Ox 98.4 F 68 18 122/56 100 08/25/17 07:53 08/25/17 10:00 08/25/17 07:53 08/25/17 07:53 08/25/17 07:53 Plan Activity: advance as tolerated Weight Bearing Status: Non-Weight Bearing Diet: low salt, diabetic Follow up with: ELENA STEWART MD [Primary Care Provider] - 7 Days Prescriptions: Clindamycin [Clindamycin CAP] 300 mg PO Q8H #12 cap Oseltamivir [Tamiflu] 75 mg PO BID #5 cap Other Discharge Orders: XR abd series w cxr 1V Location: Determined By Patient
[2017-08-25 15:50] VITALS: BP 172/81
== END 2017-08-25 18:30 | disposition home or self-care (01) | DRG 871 ==
LOC: ED 23:56 → 2B-ACE 08-20 06:06
PROVIDERS: ADMIT Internal Medicine; ATTEND Internal Medicine
DX: A41.9 Sepsis, unspecified organism (principal); G82.50 Quadriplegia, unspecified; N39.0 Urinary tract infection, site not specified; E87.6 Hypokalemia; E83.42 Hypomagnesemia; K59.00 Constipation, unspecified; I10 Essential (primary) hypertension; L89.159 Pressure ulcer of sacral region, unspecified stage; E11.9 Type 2 diabetes mellitus without complications; K63.89 Other specified diseases of intestine; I25.2 Old myocardial infarction; Z89.612 Acquired absence of left leg above knee; Z90.49 Acquired absence of other specified parts of digestive tract; Z79.4 Long term (current) use of insulin; Z86.73 Personal history of transient ischemic attack (TIA), and cerebral infarction without residual deficits
CPT/HCPCS: 36415; 71045; 74018; 74019; 74177; 80048; 80053; 81001; 82140; 82805; 82962; 83690; 83735; 85025; 85610; 85730; 86140; 86850; 86900; 86901; 87040; 87045; 87086; 96361; 96374; 96375; J0696; J1815; J2543; J2930; J3370; J3475; J3480; J7030; Q9967

== ENCOUNTER 2017-11-15 20:36 | Emergency (ER) | payer MEDICARE ==
[2017-11-15] MEDS ORDERED: ASPIRIN PO ONE (21:46)
[2017-11-15 22:31] LABS: Basophils # (Auto) 0.1 K/mm3 (0.0-0.1); Basophils % (Auto) 0.6 % (0.0-1.8); Eosinophils # (Auto) 0.4 K/mm3 (0.0-0.4); Eosinophils % (Auto) 4.1 % (0.0-4.3); Hematocrit 33.6 % (35.5-45.6); Hemoglobin 10.7 gm/dl (11.8-15.2); Lymphocytes # (Auto) 2.4 K/mm3 (1.2-5.4); Lymphocytes % (Auto) 22.9 % (13.4-35.0); Mean Corpuscular HGB Conc 32 % (32-34); Mean Corpuscular Hemoglobin 27 pg (28-32); Mean Corpuscular Volume 84 fl (84-94); Monocytes # (Auto) 0.9 K/mm3 (0.0-0.8); Monocytes % (Auto) 8.3 % (0.0-7.3); Platelet Count 369 K/mm3 (140-440); Red Blood Count 4.02 M/mm3 (3.65-5.03); Red Cell Distribution Width 18.7 % (13.2-15.2)
[2017-11-15 22:33] LABS: BUN/Creatinine Ratio 55; Blood Urea Nitrogen 22 mg/dL (9-20); Calcium 9.4 mg/dL (8.4-10.2); Hemolysis Index 16
--- NOTE | 2017-11-15 22:42 | Emergency Department Report ---
ED Chest Pain HPI - General Chief Complaint: Chest Pain Stated Complaint: CHEST PAIN/WEAKNESS Time Seen by Provider: 11/15/17 22:37 Source: patient, EMS Mode of arrival: Stretcher Limitations: Physical Limitation - History of Present Illness Initial Comments: 67-year-old quadriplegic patient of group home sent for evaluation of chest pain, but patient reports that he has been having muscle spasms which originate in his abdomen, and radiate up into his chest during those episodes, usually as a result of his quadriplegia. He takes an unknown muscle medicine, but he also has significant pain when he has cramping, but reports that he has had request for pain medicine denied by his physician. His pain has been recurrent today, typically in a fashion so she was spasms which originate in the left upper quadrant, lasted for a prolonged period time generally 30-60 minutes at a time, then resolved more or less spontaneously. After which he feels better. He has no shortness of breath during this episode, no other secondary symptoms of acute coronary syndrome, although he does have a past history of myocardial infarction, stroke, hypertension, and type 2 diabetes. He also has a previous left [id number] and palpitations secondary to circulatory problems. He is comfortable at this time, and in no acute distress. -: Sudden Onset: other (intermittent, spontaneous, associated with muscle spasm) Pain Location: other (upper abdomen and anterior chest wall together with episodes of muscle spasm) Pain Radiation: none Severity: moderate Severity scale (0 -10): 6 (during episodes of acute spasm, current discomfort 0- 2) Quality: other (muscle spasm) Consistency: intermittent (recurrent) Improves With: nothing Worsens With: movement Context: other (quadriplegia secondary to stroke) re: denies: nausea, vomting Other Symptoms: denies: cough, fever, rash Treatments Prior to Arrival: none Aspirin use within the Past 7 Days: (0) No - Related Data Home Medications Medication Instructions Recorded Confirmed Last Taken Ascorbic Acid [Vitamin C] 500 mg PO QDAY 03/27/14 08/20/17 1 Day Ago ~04/26/17 Lactobacillus Acidophilus 1 each PO Q8HR 03/27/14 08/20/17 1 Day Ago [Acidophilus] ~04/26/17 Lisinopril 5 mg PO DAILY 03/27/14 08/20/17 1 Day Ago ~04/26/17 Mirtazapine [Remeron] 7.5 mg PO QHS 02/16/15 08/20/17 1 Day Ago ~04/26/17 Warfarin [Coumadin] 5 mg PO QHS 06/28/15 08/20/17 1 Day Ago ~04/26/17 Esomeprazole Magnesium [NexIUM] 40 mg PO DAILY 03/20/16 08/20/17 1 Day Ago ~04/26/17 Insulin Aspart Prot/Aspart(Nf) 0 units SUB-Q ACHS PRN 03/20/16 08/20/17 1 Day Ago [NovoLOG Mix 70/30 VIAL] ~04/26/17 metFORMIN [Glucophage] 500 mg PO BID 03/20/16 08/20/17 1 Day Ago ~04/26/17 Previous Rx's Medication Instructions Recorded Last Taken Type Acetaminophen [Pain Reliever] 500 mg PO QDAY #30 tablet 06/10/13 1 Day Ago Rx ~04/26/17 Citalopram [Celexa] 20 mg PO QDAY #30 tablet 06/10/13 1 Day Ago Rx ~04/26/17 Ferrous Sulfate [Feosol] 325 mg PO BID #60 tablet 06/10/13 1 Day Ago Rx ~04/26/17 Simvastatin 20 mg PO QHS #30 tablet 06/10/13 1 Day Ago Rx ~04/26/17 Sucralfate [Carafate] 1 gm PO Q6HR #30 oral.liqd 11/19/13 1 Day Ago Rx ~04/26/17 Docusate Sodium [Colace CAP] 100 mg PO BID PRN #20 capsule 01/07/16 1 Day Ago Rx ~04/26/17 Nitrofurantoin [place]/M-Cryst 100 mg PO Q12HR #30 capsule 04/13/16 1 Day Ago Rx [Macrobid CAP] ~04/26/17 traMADol [Ultram 50 MG tab] 50 mg PO Q6HR PRN #15 tablet 05/27/17 Unknown Rx Clindamycin [Clindamycin CAP] 300 mg PO Q8H #12 cap 08/25/17 Unknown Rx Oseltamivir [Tamiflu] 75 mg PO BID #5 cap 08/25/17 Unknown Rx Baclofen [Lioresal] 10 mg PO TID PRN #90 tab 11/16/17 Unknown Rx HYDROcodone/ACETAMINOPHEN 1 each PO Q4-6H PRN #30 tablet 11/16/17 Unknown Rx [Hydrocodon-Acetaminophen 5-325] Sulfamethoxazole/Trimethoprim 1 each PO BID #20 tablet 11/16/17 Unknown Rx [Bactrim DS TAB] Allergies Allergy/AdvReac Type Severity Reaction Status Date / Time No Known Allergies Allergy Verified 05/27/17 03:08 Heart Score - HEART Score History: Slightly suspicious EKG: Non-specific Age: > 65 Risk factors: > 3 risk factors or hx of atherosclerotic disease Troponin: < normal limit HEART Score: 5 ED Review of Systems ROS: Stated complaint: CHEST PAIN/WEAKNESS Other details as noted in HPI Constitutional: denies: chills, fever ENT: denies: ear pain, throat pain Cardiovascular: chest pain (along with abdominal pain and muscle spasm) Endocrine: no symptoms reported Gastrointestinal: abdominal pain (spasm-like,), other Skin: denies: rash, lesions Neurological: other (quadriplegia, chronic) Psychiatric: denies: anxiety, depression ED Past Medical Hx - Past Medical History Hx Hypertension: Yes Hx CVA: Yes Hx Heart Attack/AMI: Yes Hx Congestive Heart Failure: No Hx Diabetes: Yes Hx Pulmonary Embolism: No Hx Liver Disease: No Hx Renal Disease: Yes Hx Arthritis: No Hx Headaches / Migraines: No Hx Seizures: No Hx Asthma: No Hx COPD: No Hx Tuberculosis: No Hx Dementia: No Hx HIV: No Additional medical history: Tumor on neck, Osteomyelitis, quadriplegic - Surgical History Hx Open Heart Surgery: No Hx Cholecystectomy: No Hx Appendectomy: Yes Hx Breast Surgery: No Additional Surgical History: L leg amputation - Social History Smoking Status: Never Smoker Substance Use Type: None - Medications Home Medications: Home Medications Medication Instructions Recorded Confirmed Last Taken Type Acetaminophen [Pain Reliever] 500 mg PO QDAY #30 tablet 06/10/13 08/20/17 1 Day Ago Rx ~04/26/17 Citalopram [Celexa] 20 mg PO QDAY #30 tablet 06/10/13 08/20/17 1 Day Ago Rx ~04/26/17 Ferrous Sulfate [Feosol] 325 mg PO BID #60 tablet 06/10/13 08/20/17 1 Day Ago Rx ~04/26/17 Simvastatin 20 mg PO QHS #30 tablet 06/10/13 08/20/17 1 Day Ago Rx ~04/26/17 Sucralfate [Carafate] 1 gm PO Q6HR #30 oral.liqd 11/19/13 08/20/17 1 Day Ago Rx ~04/26/17 Ascorbic Acid [Vitamin C] 500 mg PO QDAY 03/27/14 08/20/17 1 Day Ago History ~04/26/17 Lactobacillus Acidophilus 1 each PO Q8HR 03/27/14 08/20/17 1 Day Ago History [Acidophilus] ~04/26/17 Lisinopril 5 mg PO DAILY 03/27/14 08/20/17 1 Day Ago History ~04/26/17 Mirtazapine [Remeron] 7.5 mg PO QHS 02/16/15 08/20/17 1 Day Ago History ~04/26/17 Warfarin [Coumadin] 5 mg PO QHS 06/28/15 08/20/17 1 Day Ago History ~04/26/17 Docusate Sodium [Colace CAP] 100 mg PO BID PRN #20 capsule 01/07/16 08/20/17 1 Day Ago Rx ~04/26/17 Esomeprazole Magnesium [NexIUM] 40 mg PO DAILY 03/20/16 08/20/17 1 Day Ago History ~04/26/17 Insulin Aspart Prot/Aspart(Nf) 0 units SUB-Q ACHS PRN 03/20/16 08/20/17 1 Day Ago History [NovoLOG Mix 70/30 VIAL] ~04/26/17 metFORMIN [Glucophage] 500 mg PO BID 03/20/16 08/20/17 1 Day Ago History ~04/26/17 Nitrofurantoin [place]/M-Cryst 100 mg PO Q12HR #30 capsule 04/13/16 08/20/17 1 Day Ago Rx [Macrobid CAP] ~04/26/17 traMADol [Ultram 50 MG tab] 50 mg PO Q6HR PRN #15 tablet 05/27/17 08/20/17 Unknown Rx Clindamycin [Clindamycin CAP] 300 mg PO Q8H #12 cap 08/25/17 Unknown Rx Oseltamivir [Tamiflu] 75 mg PO BID #5 cap 08/25/17 Unknown Rx Baclofen [Lioresal] 10 mg PO TID PRN #90 tab 11/16/17 Unknown Rx HYDROcodone/ACETAMINOPHEN 1 each PO Q4-6H PRN #30 tablet 11/16/17 Unknown Rx [Hydrocodon-Acetaminophen 5-325] Sulfamethoxazole/Trimethoprim 1 each PO BID #20 tablet 11/16/17 Unknown Rx [Bactrim DS TAB] ED Physical Exam - General Limitations: Physical Limitation General appearance: alert, in no apparent distress - Head Head exam: Present: atraumatic - Eye Eye exam: Present: PERRL - ENT ENT exam: Present: mucous membranes moist - Neck Neck exam: Present: normal inspection - Respiratory Respiratory exam: Present: normal lung sounds bilaterally. Absent: respiratory distress, wheezes, rales, rhonchi - Cardiovascular Cardiovascular Exam: Present: regular rate, normal heart sounds. Absent: systolic murmur, diastolic murmur - GI/Abdominal GI/Abdominal exam: Present: soft. Absent: distended, tenderness, guarding - Rectal Rectal exam: Present: deferred - exam: Present: other (suprapubic catheter in place, urine is cloudy and foul- smelling) - Extremities Exam Extremities exam: Present: other (left [id number] and dictation). Absent: tenderness - Neurological Exam Neurological exam: Present: alert, oriented X3, other (quadriplegic secondary to prior stroke) - Psychiatric Psychiatric exam: Present: normal affect, normal mood - Skin Skin exam: Present: warm, dry ED Course Vital Signs 11/15/17 11/15/17 11/15/17 21:42 23:24 23:28 Temperature 98.4 F Pulse Rate 104 H 91 H 93 H Respiratory 16 17 22 Rate Blood Pressure 112/47 O2 Sat by Pulse 95 100 Oximetry 11/15/17 11/15/17 11/15/17 23:30 23:38 23:46 Temperature Pulse Rate 88 93 H 98 H Respiratory 17 18 19 Rate Blood Pressure 84/47 84/47 111/60 O2 Sat by Pulse 100 100 100 Oximetry 11/16/17 11/16/17 11/16/17 00:00 00:16 00:30 Temperature Pulse Rate 91 H 91 H 90 Respiratory 18 20 19 Rate Blood Pressure 83/42 99/57 103/43 O2 Sat by Pulse 99 100 99 Oximetry 11/16/17 11/16/17 11/16/17 00:46 01:00 01:16 Temperature Pulse Rate 90 94 H 90 Respiratory 17 16 19 Rate Blood Pressure 103/43 115/55 115/55 O2 Sat by Pulse 100 100 100 Oximetry 11/16/17 11/16/17 11/16/17 01:30 01:45 02:00 Temperature Pulse Rate 88 86 91 H Respiratory 19 17 14 Rate Blood Pressure 102/52 103/56 102/57 O2 Sat by Pulse 99 99 96 Oximetry - Reevaluation(s) Reevaluation #1: 11/16/17 02:03 Patient had brief episode of hypotension during the ED evaluation, but was otherwise asymptomatic. This is felt to be secondary to patient's quadriplegia , he was given a small bolus of 250 mL of saline, which promptly increased pressure to the 105/50 range, which patient maintained after that. Reevaluation #2: 11/16/17 02:03 Patient reexamined after bolus and infusion of saline at 250 mL per hour, remained stable, napping comfortably, although he reports she's been having some spasms in between periods, did not notify nurse, but feeling fairly comfortable at this time. Repeat EKG is unchanged, shows left ventricular hypertrophy and nonspecific ST-T wave changes, but there is been no interval changes since his initial EKG on arrival. Lactic acid is stable at 1.6, and white count is unremarkable with no evidence of significant left shift. Glucose is stable at 116. 11/16/17 02:18 ED Medical Decision Making - Lab Data Result diagrams: 11/15/17 21:56 11/15/17 21:56 - EKG Data -: EKG Interpreted by Me EKG shows normal: sinus rhythm, ST-T waves (nonspecific anterolateral precordial flattening, no STEMI elevation.) - EKG Data When compared to previous EKG there are: no significant change Interpretation: no acute changes, nonspecific ST-T wave subha - Radiology Data Radiology results: report reviewed (patient has an elevated right hemidiaphragm , which is chronic) interpreted by me: Elevated right hemidiaphragm, no acute lobar infiltrate or pulmonary vascular congestion. - Medical Decision Making This patient with known coronary artery disease, has had intermittent chest pains, which are more typical of acute muscle spasms, which are likely secondary to patient's quadriplegia and bedbound status. Cardiac evaluation has been negative with 2 negative EKGs, as well as 2 negative serial troponin levels, which although measurable, were trending downwards, and were not indicative of an acute myocardial infarction. Patient had a brief episode of hypotension, but this was felt to be secondary to patient's chronic bedbound status and quadriplegia, and this was easily responsive to bolus of normal saline, with blood pressure remaining in the 105 systolic range, which was near patient's baseline at time of admission to the emergency department. Furthermore, serum lactate was in the normal range at 1.6. Patient may well have a urinary tract infection, but white count is stable with no significant left shift, and given that patient has an indwelling suprapubic catheter, there is little benefit to culture, as he likely has multiple contaminant organisms, and patient will be treated empirically with Bactrim, and initial dose of Rocephin provided in emergency department prior to discharge. I believe patient's symptoms are secondary to involuntary muscle spasms, which are both abdominal and chest, and seemed to come in waves typical of spasm activity. Review of patient's current medications show that he does take hydrocodone from time to time, but reports that this was not approved today during his episodes. In addition, if he is having involuntary spasms, I believe he would benefit from benzo by his muscle relaxants such as baclofen, and we'll give him a discharge prescription for same. - Differential Diagnosis acute chest pain, acute coronary syndrome, chest wall pain, muscle spasm se Critical care attestation.: If time is entered above; I have spent that time in minutes in the direct care of this critically ill patient, excluding procedure time. ED Disposition Clinical Impression: Spasm of abdominal muscles of left side, Chest wall pain, Quadriplegia UTI (urinary tract infection) due to urinary indwelling catheter Qualifiers: Indwelling urinary catheter type: cystostomy catheter Encounter type: initial encounter Qualified Code(s): T83.510A - Infection and inflammatory reaction due to cystostomy catheter, initial encounter Disposition: DC-01 TO HOME OR SELFCARE Is pt being admited?: No Does the pt Need Aspirin: No Condition: Stable Instructions: Chest Pain (ED) Additional Instructions: Evaluation today after chest pain shows that it is related to abdominal muscle wall pains and spasm, likely secondary to the chronic quadriplegia. We see no findings of antispasmodic medication on your current medication list, and we recommend taking baclofen for muscle spasms, as well as [place] for pain associated spasm. Cardiac evaluation was negative. Indwelling suprapubic cystostomy tube shows signs of chronic infection, and we are also treating for urinary tract infection with Bactrim. Reassessment by primary care physician within the next week recommended as well. Prescriptions: Baclofen [Lioresal] 10 mg PO TID PRN #90 tab PRN Reason: Muscle Spasm HYDROcodone/ACETAMINOPHEN [Hydrocodon-Acetaminophen 5-325] 1 each PO Q4-6H PRN # 30 tablet PRN Reason: Pain Sulfamethoxazole/Trimethoprim [Bactrim DS TAB] 1 each PO BID #20 tablet Referrals: PRIMARY CARE, [Primary Care Provider] - 3-5 Days Time of Disposition: 02:43
[2017-11-16] MEDS ORDERED: NACL 0.9% 250ML 250 ML ONE (00:22)
[2017-11-16] MEDS ORDERED: NACL 0.9% 1000 ML 1,000 ML IV ONE (00:58)
[2017-11-16] MEDS ORDERED: NACL 0.9% 250ML 250 ML IV ONE (00:58)
[2017-11-16] MEDS ORDERED: NORCO 5/325 PO ONE (02:20)
[2017-11-16] MEDS ORDERED: LIORESAL PO ONE (02:30)
--- NOTE | 2017-11-16 02:52 | XRay Report ---
FINAL REPORT PROCEDURE: XR CHEST 1V AP TECHNIQUE: Chest radiograph anteroposterior view. CPT 52816 HISTORY: chest pain COMPARISON: No prior studies are available for comparison. FINDINGS: Heart: Normal. Mediastinum/Vessels: Normal. Lungs/Pleural space: The right hemidiaphragm is elevated. There is discoid atelectasis versus fibrosis at the right lung base. There are no infiltrates, effusions or pneumothoraces.. Bony thorax: No acute osseous abnormality. Life support devices: None. IMPRESSION: No acute cardiopulmonary abnormality.
[2017-11-16 04:23] VITALS: BP 151/70
== END 2017-11-16 05:51 | disposition home or self-care (01) ==
LOC: ED 20:36
DX: T83.510A Infection and inflammatory reaction due to cystostomy catheter, initial encounter (principal); G82.50 Quadriplegia, unspecified; R07.89 Other chest pain; M62.838 Other muscle spasm; I10 Essential (primary) hypertension; I25.2 Old myocardial infarction; E11.9 Type 2 diabetes mellitus without complications; Z89.612 Acquired absence of left leg above knee; Z86.73 Personal history of transient ischemic attack (TIA), and cerebral infarction without residual deficits; Y84.6 Urinary catheterization as the cause of abnormal reaction of the patient, or of later complication, without mention of misadventure at the time of the procedure; Y92.89 Other specified places as the place of occurrence of the external cause
CPT/HCPCS: 36415; 71045; 80048; 82140; 84484; 85025; 87040; 93005; 93010; 99285; J7030; J7050